=== PATIENT | male | born 1970 | race Caucasian/White ===

== ENCOUNTER 2021-12-20 05:24 | Emergency (ER) | payer OTHER, SELFPAY ==
[2021-12-20 05:26] VITALS: BP 140/95; PULSE 74; RESP 16; TEMP 36.9; O2SAT 98; BMI 29.1
--- NOTE | 2021-12-20 05:33 | EDS_ITS ---
HPI History of Present Illness Chief Complaint: Upper Extremity Injury Informant: patient Occured/Mechanism Mechanism/Context: Yes blunt trauma Onset/Context/Timing Onset: Days (10) Context: Sudden Onset Timing: Intermittent and Waxes and wanes Location: R shoulder Current Severity: Mild Maximum Severity: Moderate Worsened by: tends to get worse at work, when lifting, moving boxes Relieved by: remaining still Associated Symptoms Associated Symptoms: Negative for Parasthesia, Weakness or Loss of Funtion Narrative Narrative: Patient states he injured his right shoulder accidentally around 10 days ago when he was going around a corner and accidentally clipped the corner of the wall with his anterior right shoulder. 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 He gets some crackling and popping with certain movements. [id number]. Has not seen anybody prior to this visit for this problem. PFSH PFSH Medical History no medical history no medical history Home Medications naproxen 500 mg tablet 500 mg PO BID PRN PRN Pain #20 tabs 12/20/21 [Rx Last Taken Unknown] Allergy/AdvReac Type Severity Reaction Status Date / Time No Known Allergies Allergy Verified 08/18/13 08:21 Social History Smoking Status: Current every day smoker tobacco type: cigarettes ROS ROS ED Constitutional Constitutional ED: Denies chills or fever(s) Musculoskeletal Musculoskeletal: Reports extremity pain; Denies neck pain Integumentary Denies Abrasions, rash or wounds Neurologic Neurologic: Denies paresthesias or weakness EXAM Physical Exam Const Vital Signs: 12/20/21 05:26 Temperature 98.4 F Temperature Source Temporal Pulse Rate 74 Respiratory Rate 16 Blood Pressure 140/95 H Blood Pressure Mean 110 Pulse Ox 98 Oxygen Delivery Method Room Air Positive well nourished and well developed General Appearance ED: well developed and NAD Neck full ROM and supple Back/Spine normal ROM and normal to inspection Extremity normal to inspection and full ROM Extremity Narrative: Full range of motion right shoulder including abduction over 90 degrees although this does cause some pain. Internal rotation against resistance reproduces some pain, there is some subacromial and humeral head tenderness. No bony acromial, acromioclavicular, or coracoid process tenderness. Negative Yergason. Negative speed test. Neuro oriented x3, no focal motor deficits and no sensory deficits noted Sensorium / Orientation: alert Psych mental status grossly normal and thought process normal Skin no wounds Rashes: no rashes MDM MDM MDM Narrative Medical decision making narrative: Three-view x-ray series of the right shoulder is obtained and on my interpretat ion it is negative for any acute, but I do see a small piece that may be off the greater trochanter, it does not appear to be acute radiology did note it. He has never had x-rays of his right shoulder here in the past, patient states he had a traumatic dislocation about 20 years ago in [place]. It is certainly possible that he has a chronic calcification versus avulsion versus Hill-Sachs lesion that we are looking. I do not suspect an acute fracture based on the appearance of this fragment. At this point I recommend anti-inflammatories and close outpatient follow-up with orthopedics if the pain persists, this could be a number of soft tissue injuries of the right shoulder, including and not exclusive of contusion, traumatic bursitis, subcoracoid bursitis, rotator cuff injury. Discharge Plan Triage Chief Complaint: Upper Extremity Injury ED Provider: Yunior Baez Dx/Rx/DC Orders Clinical Impression: Injury of right shoulder Instructions: ED Shoulder Contusion Prescriptions: Continued naproxen 500 MG tablet 500 mg PO BID PRN PRN (Reason: Pain) Qty: 20 0RF Primary Care Provider: Care Physician,No Primary Referrals: Mayur Rosas DO [Med Staff - Active Staff] - 10-14 Days if not better Care Physician,No Primary [Primary Care Provider] - Disposition Disposition: Home, Self Care
--- NOTE | 2021-12-20 05:41 | RAD_ITS ---
STUDY: X-RAY - RIGHT SHOULDER REASON FOR EXAM: Male, 51 years old. Pain/injury TECHNIQUE: 4 view(s) of the shoulder. COMPARISON: None. FINDINGS: Normal glenohumeral articulation. Normal acromioclavicular joint. Normal acromion. Normal humeral head and visualized proximal humerus. The soft tissue structures are unremarkable. Bone fragment posterior to the humeral head. Normal visualized pulmonary apex. RAD/Shoulder min 2 Views IMPRESSION: Bone fragment posterior to the humeral head may represent an avulsion fracture. Electronically Signed: Raymond Albert MD at 6:12 EDT ,
[2021-12-20 06:44] VITALS: BP 142/74; PULSE 78; RESP 17; O2SAT 98
== END 2021-12-20 06:45 | disposition home or self-care (01) ==
LOC: ED 05:55
PROVIDERS: Emergency Provider Emergency Medicine; Visit Provider Emergency Medicine
DX: S49.91XA Unspecified injury of right shoulder and upper arm, initial encounter (principal); F17.210 Nicotine dependence, cigarettes, uncomplicated; W22.01XA Walked into wall, initial encounter
CPT/HCPCS: 73030; 99282

== ENCOUNTER → 2022-04-14 | Outpatient (CLI) | payer OTHER, SELFPAY ==
--- NOTE | 2022-04-14 16:08 | CT_ITS ---
EXAM: CT MAXILLOFACIAL SINUSES WITH INTRAVENOUS CONTRAST CLINICAL INDICATION: BASAL CELL CARCINOMA LT SIDE OF NOSE BASAL CELL CARCINOMA TECHNIQUE: Helically acquired images were obtained of the maxillofacial sinuses with intravenous contrast. This CT exam was performed using one or more of the following dose reduction techniques: automated exposure control, adjustment of the mA and/or kV according to patient size, and/or use of iterative reconstruction technique. This report was created using [employer] report generation technology. CONTRAST: IV 50mL Isovue-370 RADIATION DOSE: CTDIvol = 29.38 mGy, DLP = 591.53 mGy-cm COMPARISON: None. FINDINGS: MAXILLARY SINUSES: Clear. Ostiomeatal complexes are normally formed. SPHENOID SINUSES: Clear. FRONTAL SINUSES: Clear. ETHMOID AIR CELLS: Clear. NASAL CAVITY/SEPTUM: Nasal septum is midline. Nasal turbinates are unremarkable. BONES/JOINTS: Anterior cranial fossa is unremarkable. SOFT TISSUES: Along the left side of the nares, there is a soft tissue ulceration. 12 x 5mm enhancing mass is noted along the medial left maxilla extending to the left nares. This is likely related to the patient''s known carcinoma. ORBITS: Unremarkable. DENTAL: Poor dentition. Multiple dental caries. No periodontal osseous erosion. CT/Sinus/Facial Bone WITH Contras IMPRESSION: Along the left side of the nares, there is a soft tissue ulceration. 12 x 5mm enhancing mass is noted along the medial left maxilla extending to the left nares. This is likely related to the patient''s known carcinoma. Electronically Signed: Rogelio Uriostegui MD at 17:46 EST ,
== END | disposition home or self-care (01) ==
LOC: CT 16:06
DX: C44.91 Basal cell carcinoma of skin, unspecified (principal)
CPT/HCPCS: 70487; Q9967

== ENCOUNTER 2022-06-05 05:57 | Day surgery (SDC) | payer OTHER, SELFPAY ==
--- NOTE | 2022-06-04 23:29 | HP.PCM_ITS ---
History and Physical Date of Admission: 06/05/22 HISTORY OF PRESENT ILLNESS 52 year old man presents with an extensive ulcerated lesion left nasal alar rim and lateral nasal sidewall with erosion into underlying cartilage and nasal mucosa with extension to the left supra-medial cheek and left upper lip that enlarged in size over the last several months.? A punch biopsy was done on 02/06/22.? It showed a nodular basal cell carcinoma.? He denies fever.? He denies trauma.? He denies recent infection.? He denies bleeding.? A CT of his sinuses was done on 04/14/22 which showed no underlying bony involvement.? He presents today for further evaluation and treatment. PAST MEDICAL HISTORY Basal cell carcinoma (BCC) of left medial cheek Basal cell carcinoma (BCC) of left side of nose Basal cell carcinoma (BCC) of skin of left upper lip Bone fracture Smoker PAST SURGICAL HISTORY None. ALLERGIES No Known Allergies MEDICATIONS None. FAMILY HISTORY Other - diabetes SOCIAL HISTORY Smoking Status:? Current every day smoker tobacco type: cigarettes alcohol intake:? never substance use type:? does not use REVIEW OF SYSTEMS General - Denies fever, fatigue, and weight loss. Eyes - Denies cataracts and glaucoma. ENT - Denies nasal congestion and sore throat. Endocrine - Denies excessive thirst and urination. Skin - Has an enlarging ulcerated erosive lesion left nasal alar rim and lateral nasal sidewall with erosion into underlying cartilage and nasal mucosa with extension to the left supra-medial cheek and left upper lip.? A punch biopsy from 02/06/22 showed a nodular basal cell carcinoma. Musculoskeletal - Denies joint pain, joint stiffness, weakness of muscles and joints, and arthritis.? Has back pain. Neuro - Denies headaches. Cardiovascular - Denies chest pain, fatigue, and shortness of breath with exertion. Psych - Denies anxiety and depression. Respiratory - Denies chronic cough and shortness of breath.? Patient is a smoker. Gastrointestinal - Denies nausea, vomiting, diarrhea, and constipation. Hematologic - Denies abnormal bruising and bleeding. Genitourinary - Denies hematuria and urinary frequency. PHYSICAL EXAMINATION General - Alert and Oriented. HEENT - PERRL. EOMI.? Throat is clear.? On his left nasal alar rim and lateral nasal sidewall with erosion into underlying cartilage and nasal mucosa with extension to the left supra-medial cheek and left upper lip is a lesion that was punch biopsied on 02/06/22 and it showed a nodular basal cell carcinoma.? The lesion measures 2.5 x 4 cm.? There is full thickness tissue destruction from the cancer into the left nasal cavity. ? No other suspicious lesions noted. Neck - Supple and nontender.? No cervical adenopathy.? No suspicious lesions noted. Lungs - Clear to auscultation. Heart - Regular rate and rhythm. Abdomen - Soft and nondistended. Extremities - FROM. No axillary adenopathy.? Radial pulses are palpable.? No suspicious lesions noted. Neuro - CN II-XII grossly intact. Psych - Normal mood and affect. ASSESSMENT 1.? 4 cm ulcerated erosive nodular basal cell carcinoma left nasal alar rim and lateral nasal sidewall with erosion into underlying cartilage and nasal mucosa with extension to the left supra-medial cheek and left upper lip. 2.? Smoker. PLAN Medical records reviewed. Pathology reviewed. CT reviewed. First we need to establish a diagnosis with clear margins with an excision of this ulcerated basal cell carcinoma that overlaps multiple aesthetic subunits.? It will be a 1 cm margin for excision. Once clear margins are obtained, will begin the complex reconstruction.? For the nose a forehead flap is necessary to provide soft tissue skin coverage.? Because it is a full thickness erosion into the nasal mucosa, will need cartilage grafts for support.? The cartilage grafts will be taken from the ears and the nasal septum.? Will try and see if the mucosal lining can be reconstructed with an ipsilateral mucoperichondrial flap and a contralateral mucoperichondrial flap. ? If that doesn't provide enough lining, then can proceed with delaying a skin graft to the underside of the forehead flap.? The second step would entail an initial delay procedure to the forehead flap because of his history of smoking.? At the time of the delay, can place a skin graft on the undersurface of the forehead flap that would be rotated into the nasal defect in tandem. ? Would wait 6 weeks before rotating the forehead flap and skin graft.? ? During this delay procedure, may also try and close some of the wound defect with a left cheek advancement flap that would stop at the border of the nose to maintain the aesthetic subunits.? The defect on the left upper lip may be skin grafted. The third step would entail the rotation of the forehead flap and placement of cartilage grafts for support.? Would wait 3 weeks before proceeding with division and inset of the forehead flap. The fourth step would be the division and inset of the forehead flap. The initial surgery, excision of the basal cell carcinoma with a margin, would be done under general anesthesia on an outpatient basis. The last surgery which is division and inset of the forehead flap would be done under general anesthesia on an outpatient basis. The in between surgeries would be done under general anesthesia with a surgical observation overnight stay in the hospital. ? Patient was informed of the risks and complications of the procedure including alternatives to surgery.? These were discussed with the patient personally.? Patient voices understanding and wishes to proceed. Some of the risks and complications were included in a form from the [place] [employer]. Potential risks and complications included but not inclusive of bleeding, infection, seroma, hematoma, bruising, swelling, loss of sensation to skin, partial or complete loss of skin flap, wound breakdown, need for wound care, poor scarring, poor aesthetic outcome, intra operative cardiac or neurologic events, DVT, PE, and reaction to anesthesia. Encouraged patient to stop smoking as it may have deleterious effects on wound healing. Assessment & Plan Assessment/Plan (1) Basal cell carcinoma (BCC) of left side of nose: (2) Basal cell carcinoma (BCC) of left medial cheek: (3) Basal cell carcinoma (BCC) of skin of left upper lip: (4) Smoker:
[2022-06-05 06:30] VITALS: BP 127/85; PULSE 86; RESP 18; TEMP 36.7; O2SAT 100; BMI 26.7
[2022-06-05] MEDS: Lactated Ringers 1,000 ML 15 ML IV (06:35)
--- NOTE | 2022-06-05 07:30 | LES_PTH ---
PATIENT: AMADEO COOK SHARI LOC: [facility] [place] U#:[id number] AGE/SX: 52/M ROOM: RE06/05/[address]: Dr. Art Broussard MD : 1970 BED: DIS: 06/05/2022 SPEC #: [id number] RECD: 06/05/22 13:49 STATUS: RAUL REJeni #: [id number] ONEIL: 06/05/22 07:[address]: Art Broussard DEPT: SURGICAL PATHOLOGY RECD BY: Denise Rodriguez ENTERED: 06/08/22 09:49 SP TYPE: Lesion OTHR DR: No Primary Care Phys Tissues: Skin of lip, NOS Procedures: Surgery Specimen Level IV HEADER OPERATION: Excision ulcerated basal cell cancer left nasal alar rim PRE-OP DIAGNOSIS: 4.0 cm ulcerated erosive nodular basal cell carcinoma left nasal alar rim and lateral nasal sidewall with erosion into underlying cartilage and nasal mucosa with extension to the left supramedial cheek and left upper lip TISSUE SUBMITTED: BCC of left nasal sidewall, nasal alar rim, supramedial cheek, upper lip tag 12 o?clock MICROSCOPIC DIAGNOSIS Skin lesion left nasal sidewall, superior cheek, excision: Basal cell carcinoma, superficial nodular, ulcerated and deeply invasive, extending focally to the deep margin of excision. See comment. AM:juan 06/09/2022 COMMENT The basal cell carcinoma in area is deeply invasive involving skeletal muscle and focal perineural invasion. The lesion extends focally to the central deep soft tissue margin of excision. No skeletal muscle is identified in this region. Clinical correlation is suggested. Case has been reviewed in consultation with Dr. Cordero who concurs with the above diagnosis. IDC:SJ MICROSCOPIC DESCRIPTION Slides are reviewed. GROSS DESCRIPTION Received in fixative is one container labeled with the patient's name and designated left nasal sidewall. The specimen consists of an irregular fragment of skin with attached duvall soft tissue measuring 4.5 x 4.5 x 0.8 cm. A suture is present on one edge. The central portion of the tissue is irregular, granular and possibly ulcerated in an area measuring 3.0 x 3.0 cm. The specimen is differentially inked as follows: 12?o'clock - black, 3 o'clock - red, 6 o'clock - blue, 9 o'clock - green and deep surface - yellow. The specimen is radially sectioned and totally submitted in seven cassettes. / AM:juan 06/08/2022 TC:0 CPT: 11127
[2022-06-05] MEDS: Clindamycin 900 MG/50 ML BAG 75 MG IV (07:46)
[2022-06-05] MEDS: Lidocaine 1% /Epi 1:100 (20ml) 20 ML Vial (08:07)
--- NOTE | 2022-06-05 08:57 | OP.PCM_ITS ---
Problems Associated Problem List Diagnoses (1) Open wound of lip: (2) Basal cell carcinoma (BCC) of left side of nose: (3) Basal cell carcinoma (BCC) of left medial cheek: (4) Basal cell carcinoma (BCC) of skin of left upper lip: (5) Open wound of nasal cavity: (6) Open wound of left cheek: (7) Smoker: Report of Operation Date of Procedure: 06/05/22 Pre-Operative Diagnosis: 1. 4 cm ulcerated erosive nodular basal cell carcinoma left nasal alar rim and lateral nasal sidewall with erosion into underlying cartilage and nasal mucosa with extension to the left supra-medial cheek and left upper lip. 2. Smoker. Post-Operative Diagnosis: 1. 3 cm ulcerated erosive nodular basal cell carcinoma left nasal alar rim and lateral nasal sidewall with erosion into underlying cartilage and nasal mucosa. 2. 1.5 cm ulcerated erosive nodular basal cell carcinoma extension left supra- medial cheek. 3. 1 cm ulcerated erosive nodular basal cell carcinoma extension left upper lip . 4. Open surgical basal cell carcinoma wound left nasal alar rim and lateral nasal sidewall with erosion into underlying cartilage and nasal mucosa. 5. Open surgical basal cell carcinoma wound left supra-medial cheek with involvement of underlying muscle. 6. Open surgical basal cell carcinoma wound left upper lip with involvement of underlying muscle. 7. Smoker. Surgery/Procedure Performed:: 1. Excision 3 cm ulcerated erosive nodular basal cell carcinoma left nasal alar rim and lateral nasal sidewall with erosion into underlying cartilage and nasal mucosa with partial rhinectomy. 2. Radical excision 1.5 cm ulcerated erosive nodular basal cell carcinoma extension left supra-medial cheek involving underlying muscle. 3. Radical excision 1 cm ulcerated erosive nodular basal cell carcinoma extension left upper lip involving underlying muscle. Description of Surgical Findings:: 52 year old man presents with an extensive ulcerated lesion left nasal alar rim and lateral nasal sidewall with erosion into underlying cartilage and nasal mucosa with extension to the left supra-medial cheek and left upper lip that enlarged in size over the last several months.? A punch biopsy was done on 02/06/22.? It showed a nodular basal cell carcinoma.? He denies fever.? He denies trauma.? He denies recent infection.? He denies bleeding.? A CT of his sinuses was done on 04/14/22 which showed no underlying bony involvement.? Patient was informed of the risks and complications of the procedure including alternatives to surgery. These were discussed with the patient personally. Patient voices understanding and wishes to proceed. Some of the risks and complications were included in a form from the [employer]. Potential risks and complications included but not inclusive of bleeding, infection, hematoma, bruising, swelling, loss of sensation to skin, wound breakdown, need for wound care, poor scarring, poor aesthetic outcome, intra operative cardiac or neurologic events, DVT, PE, and reaction to anesthesia. Encouraged patient to stop smoking as it may have deleterious effects on wound healing. Size of wound left nasal alar rim and lateral nasal sidewall, left supra-medial cheek, and left upper lip - 6 x 5 x 1 cm. Surgeon: Art Broussard MD knitting machine fixer: None Type of Anesthesia: General Anesthesiologist: Anirudh Reaves MD and Jean Paul Felipe CRNA Specimen's removed: Ulcerated erosive nodular basal cell carcinoma left nasal alar rim and lateral nasal sidewall with erosion into underlying cartilage and nasal mucosa with extension to the left supra-medial cheek and left upper lip to Pathology. Drains: None. Estimated Blood Loss (mL): 100. Description of Procedure: Patient was taken to OR in supine position and was placed under general anesthesia. The face was prepped and draped in the usual fashion. SCD's were placed for DVT prophylaxis. Perioperative antibiotics were given intravenously. Using xylocaine with epinephrine, the ulcerated erosive nodular basal cell carcinoma left nasal alar rim and lateral nasal sidewall with erosion into underlying cartilage and nasal mucosa with extension to the left supra-medial ch pauma and left upper lip was infiltrated. After waiting 5 minutes for the anesthetic to take effect, I made an incision around the ulcerated erosive nodular basal cell carcinoma with a 1 cm margin in all directions. Dissection was carried down into the subcutaneous tissue. When I got close to the ulcerated erosive portion of the basal cell carcinoma, it was adherent to the underlying nasal cartilage and mucosa as well as to the cheek musculature and lip musculature. Muscle was excised with the specimen so the remaining wound was soft without evidence of gross disease. The left side of the columella was also excised with the specimen as well as some caudal septal mucosa exposing the caudal end of the septum. The left upper lip excision besides including some underlying muscle also included tissue in the nasal vestibule. Some bleeding muscle edges of the cheek musculature and lip musculature were cauterized for hemostasis. When the specimen was removed, a suture was placed at 12 oclock position for pathology orientation. The specimen was then sent to Pathology for analysis to rule out carcinoma at the margins. The basal cell carcinoma of the left side of the nose, left supra-medial cheek, and left upper lip was sent to Pathology as one specimen because of their proximity to each other. The wound was irrigated with saline. Hemostasis was obtained with electrocautery. The size of the basal cell carcinoma wound left nasal alar rim and lateral nasal sidewall with erosion into underlying cartilage and nasal mucosa and left supra- medial cheek with involvement of underlying muscle and left upper lip with involvement of underlying muscle is 6 x 5 x 1 cm. With the additional 1 cm margin, the left nasal alar rim and lateral nasal sidewall with erosion into underlying cartilage was a 5 cm excision. The left supra-medial cheek with involvement of underlying muscle was a 3.5 cm excision. The left upper lip with involvement of underlying muscle was a 3 cm excision. The wound was packed with Aquacel Silver and 4x4 gauze and secured to the skin edges with 4-0 Nylon tie over stent suture dressing. Patient tolerated the procedure well and was sent to PACU in satisfactory condition. Patient will be sent home on antibiotics and pain medication. He will keep his head elevated during the initial postoperative period. Patient will followup on Wednesday06/08/22 for a wound check and Silver dressing change and for discussion of the pathology report when it becomes available. Once there are negative margins in the wound, then will proceed with multistage complex n diann reconstruction along with left supra-medial cheek and left upper lip reconstruction. Grafts/Implants Used: None. Procedure Start Time: 08:07 Procedure Stop Time: 08:52 Complications None. Admit VTE Documentation VTE Present on Admission: No VTE Mechan Device Prophylaxis: SCD's VTE Pharm Prophylaxis ordered?: No Addendum Addendum: Surgery Charges CPT - 38473 ICD-10 - C44.311, S01.20xA, F17.200 [id number] C44.319, S01.402A, F17.200 52025 C44.01, S01.501A, F17.200
[2022-06-05 09:01] VITALS: BP 127/85; BP 147/96; PULSE 81; RESP 16; TEMP 36.3; O2SAT 97
[2022-06-05 09:15] VITALS: BP 127/85; BP 145/112; PULSE 78; RESP 16; O2SAT 100
--- NOTE | 2022-06-05 09:24 | PCM.DC ---
Discharge Instructions Diet Discharge Diet: No restrictions and - (encourage nutritional supplementation with protein to help the healing process.) Activity Discharge Activity: May Shower (from the neck down. Keep facial dressing dry.) and - (keep head elevated. no heavy lifting.) May shower in (days): 1 (from the neck down. keep facial dressing dry.) May resume sexual activity in: 10-14 days Ice area for (Minutes): 5 (facial swelling. ) Weight Bearing Status: Weight bearing as tolerated Lifting Restrictions: 10 lbs. Keep extremity elevated above heart level: - (elevate head.) Dressing / Incision Call your doctor if your incision/area has: Continuous Slow Oozing, Sudden Increased Bleeding, Increased Pain/ Swelling, Increased Redness, Foul Smelling Discharge and Swelling at the incision site Call your doctor if you observe: Fever of 101 or Higher, Coldness, Increased Pain, Shortness of breath, Chest pain, Calf discomfort and Uncontrolled pain Change Dressing in: leave in place till F/U (will change Silver nasal dressing on Wednesday06/08/22.) Cleanse incision/area with: Keep Dressing Clean & Dry (may shower from the neck down.) Follow Up Care Please Follow Up With: Art Broussard MD When: wednesday06/08/22. call [phone] for appt. Test Results: Test results from this visit will be discussed in further detail at your follow-up appointment, if applicable. Discharge Plan Admission Primary Reason for Your Visit: radical excision basal cell carcinoma lt medial cheek, upper lip, and nose Attending Provider: Art Broussard Primary Care Provider: Care Physician,Erika Primary Discharge Orders/Prescriptions Prescriptions: New clindamycin HCl 300 mg capsule 300 mg PO TID Qty: 30 0RF L.acidoph,saliva-B.bif-S.therm [Acidophilus Probiotic Blend] 175 mg capsule 1 cap PO DAILY Qty: 20 0RF oxycodone-acetaminophen [Percocet] 5-325 mg tablet 1 tab PO Q6H PRN (Reason: pain (scale score 7-10)) 7 Days Qty: 28 0RF Rx Instructions: 28 tabs (twenty-eight) Referrals / Follow Up: Art Broussard MD [Med Staff - Active Staff] - (followup wednesday06/08/22.) Care Physician,No Primary [Primary Care Provider] - Disposition Disposition (needs filled in before D/C Order can be placed): Home, Self Care
[2022-06-05 09:30] VITALS: BP 127/85; BP 157/99; PULSE 79; RESP 16; TEMP 36.6; O2SAT 97
[2022-06-05 10:29] VITALS: BP 127/85; BP 144/89; PULSE 83; RESP 18; TEMP 36.6; O2SAT 94
== END 2022-06-05 11:06 | disposition home or self-care (01) ==
LOC: SDC 05:58 → AC 06:00
PROVIDERS: Referring Provider Surgery; Visit Provider Surgery
PROC: (CPT 30150; principal; 2022-06-05 07:20)
DX: C44.311 Basal cell carcinoma of skin of nose (principal); C44.01 Basal cell carcinoma of skin of lip; C44.319 Basal cell carcinoma of skin of other parts of face; F17.210 Nicotine dependence, cigarettes, uncomplicated
CPT/HCPCS: 30150; 21016 ×2; 88305; J7120; J2405

== ENCOUNTER 2022-06-25 14:11 | Observation (INO) | payer OTHER, SELFPAY ==
--- NOTE | 2022-06-24 23:37 | PCM.HP.BLA ---
History and Physical Date of Admission: 06/25/22 Date of Admission: 06/05/22 HISTORY OF PRESENT ILLNESS 52 year old man presents with an extensive ulcerated lesion left nasal alar rim and lateral nasal sidewall with erosion into underlying cartilage and nasal mucosa with extension to the left supra-medial cheek and left upper lip that enlarged in size over the last several months.? A punch biopsy was done on 02/06/22.? It showed a nodular basal cell carcinoma.? He denies fever.? He denies trauma.? He denies recent infection.? He denies bleeding.? A CT of his sinuses was done on 04/14/22 which showed no underlying bony involvement.? He presents today for further evaluation and treatment. PAST MEDICAL HISTORY Basal cell carcinoma (BCC) of left medial cheek Basal cell carcinoma (BCC) of left side of nose Basal cell carcinoma (BCC) of skin of left upper lip Bone fracture Smoker PAST SURGICAL HISTORY None. ALLERGIES No Known Allergies MEDICATIONS None. FAMILY HISTORY Other -?diabetes SOCIAL HISTORY Smoking Status:? Current every day smoker tobacco type: cigarettes alcohol intake:? never substance use type:? does not use REVIEW OF SYSTEMS General - Denies fever, fatigue, and weight loss. Eyes - Denies cataracts and glaucoma. ENT - Denies nasal congestion and sore throat. Endocrine - Denies excessive thirst and urination. Skin - Has an enlarging ulcerated erosive lesion left nasal alar rim and lateral nasal sidewall with erosion into underlying cartilage and nasal mucosa with extension to the left supra-medial cheek and left upper lip.? A punch biopsy from 02/06/22 showed a nodular basal cell carcinoma. Musculoskeletal - Denies joint pain, joint stiffness, weakness of muscles and joints, and arthritis.? Has back pain. Neuro - Denies headaches. Cardiovascular - Denies chest pain, fatigue, and shortness of breath with exertion. Psych - Denies anxiety and depression. Respiratory - Denies chronic cough and shortness of breath.? Patient is a smoker. Gastrointestinal - Denies nausea, vomiting, diarrhea, and constipation. Hematologic - Denies abnormal bruising and bleeding. Genitourinary - Denies hematuria and urinary frequency. PHYSICAL EXAMINATION General - Alert and Oriented. HEENT - PERRL. EOMI.? Throat is clear.? On his left nasal alar rim and lateral nasal sidewall with erosion into underlying cartilage and nasal mucosa with extension to the left supra-medial cheek and left upper lip is a lesion that was punch biopsied on 02/06/22 and it showed a nodular basal cell carcinoma.? The lesion measures 2.5 x 4 cm.? There is full thickness tissue destruction from the cancer into the left nasal cavity. ? No other suspicious lesions noted. Neck - Supple and nontender.? No cervical adenopathy.? No suspicious lesions noted. Lungs - Clear to auscultation. Heart - Regular rate and rhythm. Abdomen - Soft and nondistended. Extremities - FROM. No axillary adenopathy.? Radial pulses are palpable.? No suspicious lesions noted. Neuro - CN II-XII grossly intact. Psych - Normal mood and affect. ASSESSMENT 1.? 4 cm ulcerated erosive nodular basal cell carcinoma left nasal alar rim and lateral nasal sidewall with erosion into underlying cartilage and nasal mucosa with extension to the left supra-medial cheek and left upper lip. 2.? Smoker. PLAN Medical records reviewed. Pathology reviewed. CT reviewed. First we need to establish a diagnosis with clear margins with an excision of this ulcerated basal cell carcinoma that overlaps multiple aesthetic subunits.? It will be a 1 cm margin for excision. Once clear margins are obtained, will begin the complex reconstruction.? For the nose a forehead flap is necessary to provide soft tissue skin coverage.? Because it is a full thickness erosion into the nasal mucosa, will need cartilage grafts for support.? The cartilage grafts will be taken from the ears and the nasal septum.? Will try and see if the mucosal lining can be reconstructed with an ipsilateral mucoperichondrial flap and a contralateral mucoperichondrial flap. ? If that doesn't provide enough lining, then can proceed with delaying a skin graft to the underside of the forehead flap.? The second step would entail an initial delay procedure to the forehead flap because of his history of smoking.? At the time of the delay, can place a skin graft on the undersurface of the forehead flap that would be rotated into the nasal defect in tandem. ? Would wait 6 weeks before rotating the forehead flap and skin graft.? ? During this delay procedure, may also try and close some of the wound defect with a left cheek advancement flap that would stop at the border of the nose to maintain the aesthetic subunits.? The defect on the left upper lip may be skin grafted. The third step would entail the rotation of the forehead flap and placement of cartilage grafts for support.? Would wait 3 weeks before proceeding with division and inset of the forehead flap. The fourth step would be the division and inset of the forehead flap. The initial surgery, excision of the basal cell carcinoma with a margin, would be done under general anesthesia on an outpatient basis. The last surgery which is division and inset of the forehead flap would be done under general anesthesia on an outpatient basis. The in between surgeries would be done under general anesthesia with a surgical observation overnight stay in the hospital. ? Patient was informed of the risks and complications of the procedure including alternatives to surgery.? These were discussed with the patient personally.? Patient voices understanding and wishes to proceed. Some of the risks and complications were included in a form from the [place] [employer] [employer]. Potential risks and complications included but not inclusive of bleeding, infection, seroma, hematoma, bruising, swelling, loss of sensation to skin, partial or complete loss of skin flap, wound breakdown, need for wound care, poor scarring, poor aesthetic outcome, intra operative cardiac or neurologic events, DVT, PE, and reaction to anesthesia. Encouraged patient to stop smoking as it may have deleterious effects on wound healing. Assessment & Plan Assessment/Plan (1) Basal cell carcinoma (BCC) of left side of nose: (2) Basal cell carcinoma (BCC) of left medial cheek: (3) Basal cell carcinoma (BCC) of skin of left upper lip: (4) Smoker:
[2022-06-25] VITALS (13 sets, daily range): BP systolic 130–156; BP diastolic 84–96; PULSE 83–97; RESP 16–20; TEMP 36.5–37.3; O2SAT 93–99; BMI 27.2; BMI 28.4
[2022-06-25] MEDS: Lactated Ringers 1,000 ML 15 ML IV (06:48)
--- NOTE | 2022-06-25 07:30 | LES_PTH ---
PATIENT: AMADEO COOK SHARI LOC: [facility]3 U#:[id number] AGE/SX: 52/M ROOM: [facility] RE06/25/[address]: Dr. Art Broussard MD : 1970 BED: 1 DIS: 06/26/2022 SPEC #: [id number] RECD: 06/25/22 13:15 STATUS: RAUL PAIGEJeni #: [id number] ONEIL: 06/25/22 07:[address]: Art Broussard DEPT: SURGICAL PATHOLOGY RECD BY: Denise Rodriguez ENTERED: 06/26/22 07:57 SP TYPE: Lesion OTHR DR: No Primary Care Phys Tissues: A - Skin of nose, NOS B - Skin of face, NOS Procedures: Surgery Specimen Level IV HEADER OPERATION: First stage nasal reconstruction with left paramedian forehead PRE-OP DIAGNOSIS: Basal cell carcinoma of left side of nose, left medial cheek and skin of left upper lip TISSUE SUBMITTED: A ? Left nasal wound, BCC, left superomedial cheek and left upper lip tissue, black suture tag at 12 o?clock for margin, ignore clear suture, used for closure on left superomedial cheek and upper lip tissue, B ? Left superomedial cheek, more medial than specimen A, tag at 12 o?clock MICROSCOPIC DIAGNOSIS A. Left nasal wound, excisional biopsy: Extensive ulceration, acute and chronic inflammation, granulation tissue reaction and foreign body giant cell reaction. Negative for malignancy. B. Left superomedial cheek, excisional biopsy: Ulceration, acute and chronic inflammation, granulation tissue reaction and foreign body giant cell reaction. Negative for malignancy. SJ:juan 06/29/2022 COMMENT Please make reference to previous specimen ([id number]), skin lesion left nasal sidewall, superior cheek, excision with diagnosis of ?basal cell carcinoma, superficial nodular, ulcerated and deeply invasive.? MICROSCOPIC DESCRIPTION Slides are reviewed. GROSS DESCRIPTION A - Received in fixative is one container labeled with the patient's name and designated left nasal wound, BCC, left superomedial cheek and left upper lip tissue, black suture tag at 12 o'clock for margin, ignore clear suture, used for closure on left superomedial cheek and upper lip tissue. The specimen consists of a crescent-shaped piece of duvall-white skin measuring 3.5 x 1.7 cm and up to 0.3 cm in thickness. The skin margin from about 8 to 10 o?clock is absent. An extensive area of ulceration is noted. The specimen is friable in the adjacent area of ulceration where skin is not present. The specimen is serially sectioned. Also present in the container are multiple fragments of soft tissue measuring in aggregate 2.5 x 2.5 x 0.3 cm. The entire specimen is submitted in four cassettes as follows: 1 ? smaller fragments of tissue, 2-4 - crescent-shaped piece of tissue. B - Received in fixative is one container labeled with the patient's name and designated left superomedial cheek, more medial than specimen #1, tag at 12 o'clock. The specimen consists of a triangular piece of duvall-white skin measuring 1.5 x 0.5 x 0.2 cm. A suture is noted at the base of the triangle identifying 12 o?clock. The specimen is inked as follows: 12 o'clock margin with suture representing the base of triangle ? yellow, 6 o'clock tip ? green, 3 o'clock margin ? black and 9 o'clock margin ? blue. The specimen is serially sectioned and submitted entirely in one cassette. / NBA:juan 06/26/2022 TC:2 CPT: 19564 x2
[2022-06-25] MEDS: Clindamycin 900 MG/50 ML BAG 75 MG IV (08:00)
[2022-06-25] MEDS: Lidocaine 1% /Epi 1:100 (20ml) 20 ML Vial (08:26)
[2022-06-25] MEDS: Mupirocin Ointment 22gm Tube 1 APPLIC (12:52)
--- NOTE | 2022-06-25 13:35 | OP.PCM_ITS ---
Problems Associated Problem List Diagnoses (1) Basal cell carcinoma (BCC) of left side of nose: (2) Basal cell carcinoma (BCC) of left medial cheek: (3) Basal cell carcinoma (BCC) of skin of left upper lip: (4) Open wound of nasal cavity: (5) Open wound of left cheek: (6) Open wound of lip: (7) Smoker: Report of Operation Date of Procedure: 06/25/22 Pre-Operative Diagnosis: 1. Basal cell carcinoma left nasal alar rim and lateral nasal sidewall with erosion into underlying cartilage and nasal mucosa. 2. Open surgical basal cell carcinoma wound left nasal alar rim and lateral nasal sidewall with erosion into underlying cartilage and nasal mucosa. 3. Basal cell carcinoma left supra-medial cheek. 4. Open surgical basal cell carcinoma wound left supra-medial cheek. 5. Basal cell carcinoma left upper lip. 6. Open surgical basal cell carcinoma wound left upper lip. 7. Smoker. Post-Operative Diagnosis: Same. Surgery/Procedure Performed:: 1. First stage complex nasal reconstruction basal cell carcinoma wound left nasal alar rim and lateral nasal sidewall with erosion into underlying cartilage and nasal mucosa with left paramedian forehead flap delay. 2. Surgical preparation left supra-medial cheek and left upper lip with excisional debridement basal cell carcinoma wound. 3. Reconstruction left supra-medial cheek basal cell carcinoma wound with cervicofacial rotation advancement skin flap (72 cm2). Description of Surgical Findings:: Patient went to surgery on 06/05/22 where he underwent excision 3 cm ulcerated erosive nodular basal cell carcinoma left nasal alar rim and lateral nasal sidewall with erosion into underlying cartilage and nasal mucosa with partial rhinectomy and radical excision 1.5 cm ulcerated erosive nodular basal cell carcinoma extension left supra-medial cheek involving underlying muscle and radical excision 1 cm ulcerated erosive nodular basal cell carcinoma extension left upper lip involving underlying muscle. Pathology showed basal cell carcinoma, superficial nodular, ulcerated and deeply invasive, extending focally to the deep margin of excision.? The basal cell carcinoma in area is deeply invasive involving skeletal muscle and focal perineural invasion.? The lesion extends focally to the central deep soft tissue margin of excision.? No skeletal muscle is identified in this region. Postoperatively, there has been no problems with healing of this complex wound thus with a combination of Silver dressing changes on the weekend and Saline dressing changes during the week. Since this is a basal cell carcinoma, I don't want to remove any more muscle than I already have.? The muscle was removed from the supra-medial cheek and upper lip areas. ? The focal extension to the deep margin of excision involving skeletal muscle and focal perineural invasion can be addressed with Radiation Therapy.?? Discussed with the patient, that usually no radiation would occur until the reconstruction is completed.? Dr. Gonzales from [facility] saw the patient on 06/23/22.? I talked to Dr. Gonzales later in the day, and we discussed timing of the radiation.? There is a window of opportunity where the benefit of the radiation is maximal in the early postoperative period, up to 8 weeks.? After which time there is no good data to suggest that radiation after that time would provide similar efficacy.? Waiting until the surgeries are all completed before starting radiation therapy could mean radiation therapy wouldn't start until late August to early September.? This time frame would be 3-4 months from the initial excision of the basal cell carcinoma, 06/05/22.? Even after that much delay, there is still a benefit for radiation therapy.? However the reduced benefit may not be enough to prevent recurrence since he is at increased risk for recurrence even with doing radiation therapy earlier and getting maximum benefit from the treatment.? Other options would include doing the radiation therapy after the left supra-medial cheek wound and left upper lip wound are closed with a cervicofacial advancement flap that will be done this week on 06/25/22.? In this scenario, the nasal wound would still be open during the initial radiation treatments.? In anticipation of this, I may make the initial forehead flap delay a little larger to allow debridement of the radiation wound edges at the time of the placement of the forehead flap.? The division and inset of the forehead flap which normally occurs 3 weeks later may be extended to 6 weeks because of the presence of radiation.? Some of the squaxin mucoperichondrial flaps that are normally available to help close lining defects may not be supple enough to close these lining defects and additional flaps would be necessary for this purpose.? Also instead of placing a skin graft on the undersurface of the initial forehead flap delay, a turnover flap may be used instead if radiation treatments are done during the reconstruction.? Dr. Gonzales will talk to his colleagues regarding the best mode of therapy.? At this time, they are leaning more toward waiting until the surgeries are completed before starting radiation therapy.? I told Dr. Gonzales that I can adapt the reconstruction to the presence of radiated tissue to try and give the patient the best chance of radiation success to minimize recurrence.? Also with radiated tissue, once we have determined there is no active basal cell carcinoma present, HBO treatments can be a helpful modality in softening the radiated skin and increasing vascularity to radiated skin to improve healing which can be problematic in a radiated field. Will schedule the first stage in his complex nasal reconstruction with a forehead flap delay (he is a smoker and may need a initial skin graft placed on the undersurface of the forehead flap because I anticipate the need of bringing in lining tissue).? I will close the supra-medial cheek wound with a cervicofacial flap.? A drain will be placed for 7-10 days if it can maintain its suction.? Part of the flap may be able to close the upper lip wound as well. Patient was informed of the risks and complications of the procedure including alternatives to surgery.? These were discussed with the patient personally.? Patient voices understanding and wishes to proceed. Some of the risks and complications were included in a form from the [employer]. Potential risks and complications included but not inclusive of bleeding, infection, seroma, hematoma, bruising, swelling, prolonged need for drains, loss of sensation to skin, partial or complete loss of skin flap, wound breakdown, need for wound care, poor scarring, poor aesthetic outcome, intra operative cardiac or neurologic events, DVT, PE, and reaction to anesthesia. Encouraged patient to stop smoking as it may have deleterious effects on wound healing. I used Eliazar absorbable hemostat, (I used 2 vials, one on the forehead and one on the left supra-medial cheek). Reference Number - [id number]. Lot Number - [id number]. Expiration - November 06, 2026. Surgeon: Art Broussard MD hand welt butter: Julian New RNFA Type of Anesthesia: General Anesthesiologist: Landry Romeo MD and Lacy Freeman CRNA Specimen's removed: 1. Left supra-medial cheek and upper lip basal cell carcinoma wound to Pathology and Microbiology. 2. Left supra supra-medial cheek basal cell carcinoma wound (more medial on the cheek than Specicmen #1) to Pathology and Microbiology. Drains: Basilio. Estimated Blood Loss (mL): 50. Fluids Replaced: 3500 ml (IV Fluids 2200 ml, Urine Output 1300 ml). Description of Procedure: Patient was taken to OR in supine position and was placed under general anesthesia. The face and neck areas were prepped and draped in the usual fashion. SCD's were placed for DVT prophylaxis. Perioperative antibiotics were given intravenously. A wolff catheter was placed. I marked out the area for the supratrochlear artery on the medial aspect of the left forehead in the area of the medial eyebrow. A Doppler probe was used to ovidio out the placement of the artery. The signal was strong. I rotated a piece of gauze using the medial eyebrow as the fulcrum down over the nasal defect. Using foil from a suture packet, I marked out the nasal defect on the foil and rotated it with the gauze to ovidio out the flap on the forehead. The width of the vascular pedicle to include the supratrochlear artery is 1.5 cm. I added extra length to the distal flap for a possible turnover flap for lining if needed. Initially I thought I could use a skin graft on the undersurface of the flap but healing may be questionable because of his history of smoking and the possibility of radiation therapy in between the surgeries. The distal markings on the forehead flap were infiltrated with Xylocaine and epinephrine. Incisions were made on the distal aspect of the flap, and the distal flap was elevated at the level of the muscle. Hemostasis was obtained with electrocautery. I sprayed Eliazar absorbable hemostat into the forehead wound to minimize seroma formation. I then tacked down the distal forehead flap back in place with 5-0 Monocryl interrupted sutures for the deep dermis and subcutaneous tissue. The skin was loosely approximated with 6-0 Prolene simple interrupted sutures. No hematoma noted. No vascular compromise noted on the forehead flap. Next I marked out a cervicofacial flap going from the supra-medial cheek defect horizontally between the eyelid skin and cheek skin and elevated the flap superiorly past the lateral canthal area and extending it down the preauricular area to the ear lobe. I also marked out the flap from the supra-medial cheek defect inferiorly down the melolabial fold and curved around the commissure to the inferior melolabial fold. These markings were infiltrated with Xylocaine and epinephrine. I then excised the left supra-medial cheek and upper lip basal cell carcinoma wound a little deeper because of a positive deep margin involving the muscle. A suture was marked at 12 oclock position for pathology orientation. It was sent to Pathology for analysis to rule out carcinoma at the deep margin. A small sample of tissue was also sent to Microbiology for culture. A positive culture will necessitate antibiotic therapy. The cervicofacial flap was elevated on a subcutaneous pedicle at the level of the underlying facial musculature. Hemostasis was obtained with electrocautery. The flap was rotated and advanced into the left supra-medial cheek defect with minimal tension and minimal distortion. A size 15 Basilio drain was placed through a separate stab incision inferior to the ear lobe and secured to the skin with 3-0 Nylon purse string suture. When I was advancing the flap into the supra-medial cheek defect, I felt there was an additional wedge of wound that extended to the lateral nasal sidewall that needed to be excised as well to allow more definitive demarcation between the lateral nose and the cheek. A suture was marked at 12 oclock position for pathology orientation. It was also sent to Pathology for analysis to rule out carcinoma at the deep margin, and a sample of tissue was also sent to Microbiology for culture. A positive culture will necessitate antibiotic therapy. I sprayed Eliazar absorbable hemostat into the cervico facial flap wound (the rest of the initial Eliazar and followed by a second vial of Eliazar). I then secured the cervicofacial flap to the supra-medial cheek wound at the level of the lateral nasal sidewall with 5-0 Monocryl interrupted sutures. The skin was approximated with 5-0 Prolene simple interrupted sutures and 6-0 Prolene simple interrupted sutures. The size of the wound and the size of the flap needed to close the supra-medial cheek wound was 9 x 8 cm or 72 cm2. No hematoma noted. No vascular compromise noted on the cervicofacial flap. Antibiotic ointment was applied to the suture lines on both the forehead flap and the cervicofacial flap. Silver dressing was applied to the left nasal wound. Gauze was applied to the forehead flap incision and secured with a small compression dory wrap. The cheek suture line was left open for observation. Patient tolerated the procedure well and was sent to PACU in satisfactory condition. He will keep his head elevated during the initial postoperative period and be on a 10 lb lifting restriction. Patient will be sent upstairs for continued postop care and a surgical observation overnight stay in the hospital. Grafts/Implants Used: Eliazar Procedure Start Time: 08:26 Procedure Stop Time: 13:27 Complications None. Admit VTE Documentation VTE Present on Admission: No VTE Mechan Device Prophylaxis: SCD's VTE Pharm Prophylaxis ordered?: Yes Addendum Addendum: Surgery Charges CPT - 68242 ICD-10 - C44.311, S01.20xA, C44.319, S01.402A, C44.01, S01.501A, F17.200 [id number] C44.319, S01.402A, C44.01, S01.501A, C44.311, S01.20xA, F17.200 32057 C44.319, S01.402A, C44.01, S01.501A, C44.311, S01.20xA, F17.200 44366 C44.319, S01.402A, C44.311, S01.20xA, C44.01, S01.501A, F17.200
[2022-06-25] MEDS: Clindamycin 600 MG/50 ML BAG 100 MG IV ×2 (15:58→21:40)
[2022-06-25] MEDS: oxyCODONE 5 MG Tablet 10 MG PO (16:01)
[2022-06-25] MEDS: HYDROmorphone 1 MG/ML Syringe IV (17:54)
[2022-06-26 03:23] VITALS: BP 133/82; PULSE 86; RESP 16; TEMP 36.6; O2SAT 94
[2022-06-26] MEDS: HYDROmorphone 1 MG/ML Syringe IV (04:02)
[2022-06-26] MEDS: Clindamycin 600 MG/50 ML BAG 100 MG IV ×2 (05:14→13:40)
[2022-06-26 06:08] LABS: Hematocrit 42.2 % (40-54); Hemoglobin 14.3 g/dL (13.0-16.5); Mean Corp Hgb Conc 33.9 g/dL (32-36); Mean Corpuscular Hgb 31.8 pg (27.0-32.0); Mean Corpuscular Volume 93.8 fL (80-94); Mean Platelet Vol. 9.1 fl (6.2-12.0); Platelet Count 372 K/mm3 (150-450); RBC Distribution Width SD 41.4 fl (35.1-43.9); White Blood Count 11.8 K/mm3 (4.4-11.0)
[2022-06-26 07:17] VITALS: BP 122/80; PULSE 79; RESP 16; TEMP 36.7; O2SAT 93
[2022-06-26 07:44] LABS: Anion Gap 7 (5-15); BUN 8 mg/dL (7-18); BUN/Creat Ratio 8.7 RATIO (10-20); Calcium,Total 8.9 mg/dL (8.5-10.1); Chloride 104 mmol/L (98-107); Creatinine, Serum 0.92 mg/dL (0.70-1.30); EST Glomerular Filtration Rate 92 mL/min (>60); Est Glom Filt Rate - Afr Amer 111 mL/min (>60); Estimated Creatinine Clearance 101.17 ml/min; Glucose 102 mg/dL (74-106); Potassium 3.8 mmol/L (3.5-5.1); Prealbumin 19.4 mg/dL (20.0-40.0); Sodium Level 138 mmol/L (136-145)
[2022-06-26] MEDS: Juven (unflavored) Packet 1 PACKET PO (08:14)
[2022-06-26] MEDS: Enoxaparin 40 MG/0.4 ML Syringe SC (08:14)
[2022-06-26 09:03] VITALS: O2SAT 91
--- NOTE | 2022-06-26 09:17 | CASEMGMT ---
JULIANO NG Assessment: Face to Face with pt for initial transition planning/care coordination assessment. RN BERENICE introduced self and role at [facility], pt voices understanding and consents to assessment. Pt is A/O x4 and answers all questions appropriately at this time. Pt sitting up in bed in no distress. Care providers, pharmacy, and demographics verified/updated. Admitting Dx: nasal reconstruction left PCP:Pt denies, provided pt with a local healthcare directory pamphlet Specialists:[place], [place] Preferred Pharmacy: [facility] Retail Insurance: [employer] Prescription Benefit: yes LNOK: Adriano Chavarria Jr, son Living Arrangements: Pt lives with son in a single story home with 2 steps to enter. Pt reports he was I in ADL's and working prior to surgery. Pt denies concerns at home. Transportation: Pt drives self and denies concerns with transportation. Pt son is able to transport until pt can drive again. DME/HHC/SNF: Pt denies having any DME, previous HHC or SNF stays. Pt states no concerns with going home at time of dc. Pt states should he need dressing changes, he does not have anyone available to do this as his son works opposite shifts. Made aware when rounds today, we will see what his needs will be post hospitalization. Pt states no further concerns/needs. CM to follow. Advised pt to ask CM if any further question/concerns/needs arise, voices understanding. Pt Goal: Home Plan: Home, follow for wound care
[2022-06-26 10:00] VITALS: BP 128/70; PULSE 78; RESP 17; TEMP 36.7; O2SAT 95
--- NOTE | 2022-06-26 10:42 | WOUNDNOTE ---
wound photo: face/nose
--- NOTE | 2022-06-26 10:42 | WOUNDNOTE ---
wound photo: forehead
[2022-06-26 11:23] VITALS: BP 132/83; PULSE 95; RESP 18; TEMP 37.2; O2SAT 93
[2022-06-26 16:00] VITALS: BP 126/80; PULSE 80; RESP 18; TEMP 36.8; O2SAT 95
--- NOTE | 2022-06-26 16:48 | DCINST_ITS ---
Discharge Instructions Diet Discharge Diet: No restrictions (increase protein intake) Activity Ice area for (Minutes): 5 Lifting Restrictions: 10 lb weight lifting restriction Additional Activity Instructions:: Keep head elevated at all times. Dressing / Incision Call your doctor if your incision/area has: Continuous Slow Oozing, Sudden Increased Bleeding, Increased Pain/ Swelling, Increased Redness, Foul Smelling Discharge and - (Flaps become black) Call your doctor if you observe: Fever of 101 or Higher, Coldness, Increased Pain, Change in Color, Inability to urinate, Inability to have a bowel movement, Shortness of breath, Chest pain, Calf discomfort and Uncontrolled pain Suture Line Care: Avoid Pulling/Pushing Change Dressing in: do not change dressing Cleanse incision/area with: Do not get Incision Wet Drain: Suction Additional Dressing/Incision Instructions:: Measure drainage and document drainage amounts and bring with you to your appointment Wednesday. Follow Up Care Please Follow Up With: Art Broussard MD When: Wednesday06/29/22 at 3:30 pm. Call if you can't make this time [phone] Test Results: Test results from this visit will be discussed in further detail at your follow- up appointment, if applicable. Discharge Plan Admission Admit Date/Time: 06/25/22 14:11 Attending Provider: Art Broussard Primary Care Provider: Care Physician,Erika Primary Discharge Orders/Prescriptions Prescriptions: New clindamycin HCl 300 mg capsule 300 mg PO TID 7 Days Qty: 21 0RF levofloxacin 500 mg tablet 500 mg PO DAILY 7 Days Qty: 7 0RF Continued L.acidoph,saliva-B.bif-S.therm [Acidophilus Probiotic Blend] 175 mg capsule 1 cap PO DAILY Qty: 20 0RF oxycodone-acetaminophen [Percocet] 5-325 mg tablet 1 tab PO Q6H PRN (Reason: pain (scale score 7-10)) 7 Days Qty: 28 0RF Rx Instructions: 28 tabs (twenty-eight) Referrals / Follow Up: Care Physician,No Primary [Primary Care Provider] -
--- NOTE | 2022-06-26 16:50 | PCM.PN.SRG ---
Subjective Subjective Postop #1 Patient is resting comfortably. He is tolerating po analgesia. He is steady on his feet with ambulation. Objective Data Objective Data Vital Signs: Vital Signs Temp Pulse Resp BP Pulse Ox O2 Del Method 98.3 F 80 18 126/80 H 95 Room Air 06/26/22 16:00 06/26/22 16:00 06/26/22 16:00 06/26/22 16:00 06/26/22 16:00 06/26/22 16:00 Oxygen Delivery Method Room Air Weight: 204 lb Body Mass Index (BMI) 28.4 Intake & Output: Intake and Output for Last 24 Hours 06/24/22 06/25/22 06/26/22 23:59 23:59 23:59 Intake Total 2550 / 2550 500 / 500 Output Total 1700 / 1700 1165 / 1165 Balance 850 / 850 -665 / -665 Drainage 65 ml today. Prealbumin was 19.4. Encourage nutritional supplementation with protein to help the healing process. Lab / Micro Data Attestation: I reviewed the patient's lab results. Result Diagrams: 06/26/22 04:30 06/26/22 04:30 Labs: Laboratory Results - last 24 hr 06/26/22 04:30: WBC 11.8 H, RBC 4.50 L, Hgb 14.3, Hct 42.2, MCV 93.8, MCH 31.8, MCHC 33.9, RDW Std Deviation 41.4, RDW Coeff of Garth 12.0, Plt Count 372, MPV 9.1 06/26/22 04:30: Sodium 138, Potassium 3.8, Chloride 104, Carbon Dioxide 27.0, Anion Gap 7, BUN 8, Creatinine 0.92, Estim Creat Clear Calc 101.17, Est GFR (MDRD) Af Amer 111, Est GFR (MDRD) Non-Af 92, BUN/Creatinine Ratio 8.7 L, Glucose 102, Calcium 8.9, Prealbumin 19.4 L Micro: Microbiology 06/25/22 08:57 Wound - Nose Gram Stain - Final 06/25/22 08:57 Wound - Nose Wound Culture - Preliminary Staphylococcus aureus Gram negative gloria Pathology - pending. Physical Exam Narrative General - Alert and Oriented. HEENT - Moderate swelling left periorbital area. Left cheek incision is dry and intact. Mild bruising noted at distal portion of the flap at junction of lateral nose and superior portion of the flap lateral to the left eye in the yarsani area. Flap is soft with no evidence of hematoma. Forehead flap shows mild bruising at the distal portion of the flap. Can feel underlying skull bone. No active oozing noted. Incision is dry and intact. Neck - Supple and nontender. Abdomen - Soft and nondistended. Psych - Normal mood and affect. Assessment & Plan Assessment/Plan (1) Basal cell carcinoma (BCC) of left side of nose: (2) Basal cell carcinoma (BCC) of left medial cheek: (3) Basal cell carcinoma (BCC) of skin of left upper lip: (4) Open wound of nasal cavity: (5) Open wound of left cheek: (6) Open wound of lip: (7) Smoker: PLAN: Plan Incisions are dry and intact. Flaps are soft with no evidence of hematoma. Mild bruising noted at distal end of forehead flap. Will observe. Mild bruising noted at distal end of cheek flap at junction of lateral nose and at superior end of cheek flap lateral to the eye in the yarsani area. Will observe. Patient is tolerating po analgesia. He is steady on his feet with ambulation. Discharge home today. Keep head elevated and maintain 10 lb lifting restriction. Continue Silver dressing changes to the nasal wound 3 times per week. He was treated perioperatively with Clindamycin. Operative culture thus far shows Staphylococcus aureus and Gram negative gloria. Will send him home on Clindamycin and Levaquin. When ID and Sensitivities become available, antibiotic modification may be necessary. He has pain meds at home from his first surgery. Followup office on 06/29/22. Encouraged patient to stop smoking as it may have deleterious effects on wound healing.
== END 2022-06-26 17:37 | disposition home or self-care (01) ==
LOC: SDC 14:45 → MS3 14:45
PROVIDERS: Admitting Provider Surgery; Referring Provider Surgery; Visit Provider Surgery
PROC: (CPT 30420; principal; 2022-06-25 07:15)
DX: C44.311 Basal cell carcinoma of skin of nose (principal); C44.01 Basal cell carcinoma of skin of lip; F17.210 Nicotine dependence, cigarettes, uncomplicated; C44.319 Basal cell carcinoma of skin of other parts of face
CPT/HCPCS: 15620; 15004; 14301; 14302; 00300; 36415; 80048; 84134; 85027; 87070; 87075; 87077; 87102; 87186; 87205; 87206; 88305; 94668; 96365; 96366; 96372; 96375; 96376; 99221; 99252; J7120; G0378; G0463; J2405; Q9968

== ENCOUNTER 2022-07-02 10:00 | Outpatient (RCR) | payer OTHER, SELFPAY ==
[2022-07-01 08:26] VITALS: BP 137/89; PULSE 86; RESP 18; TEMP 36.1
--- NOTE | 2022-07-01 14:23 | PCM.CONHBO ---
Assessment & Plan Assessment/Plan (1) Skin flap necrosis: (2) Basal cell carcinoma (BCC) of left side of nose: (3) Basal cell carcinoma (BCC) of left medial cheek: (4) Basal cell carcinoma (BCC) of skin of left upper lip: (5) Open wound of nasal cavity: (6) Open wound of left cheek: (7) Smoker: (8) Other acute postprocedural pain: (9) History of basal cell carcinoma excision: PLAN: Plan Patient evaluated at the wound center for HBO therapy. With his left supra-medial cheek flap compromise of at least 35% he would benefit from having HBO therapy. There is much concern that the graft will continue to be compromised and will not heal properly. With him needing radiation, the sooner he is healed, the sooner he can continue with the treatments to help his condition. He would need to start with 20 treatments at 2 KALLI for 90 minutes. He has stopped smoking as of 06/25/22. He was smoking 1.5 PPD x 35+ years. The smoking has contributed to the compromise of his left flap. Reinforced with patient that stopping smoking was the best thing he could have done to help himself. The forehead flap has a small area of compromise but it has improved since Dr. Broussard removed some of the sutures to help prevent so much tension on the flap. Continue Silver cell dressings packed into the edges of the flap to help keep the wound separation open to help with the drainage. Will obtain a chest x-ray and EKG. He will follow up at [facility] tomorrow for a dressing change. He was instructed not to get his head wet at this time. Reviewed the instructions of HBO therapy. Follow up at the wound center when HBO therapy is approved. History of Present Illness Date of Service: 07/01/22 Chief Complaint: Compromise of left supra-medial cheek and left upper lip flap and forehead flap delay History of Wound: 52 year old man presents with an extensive ulcerated lesion left nasal alar rim and lateral nasal sidewall with erosion into underlying cartilage and nasal mucosa with extension to the left supra-medial cheek and left upper lip that enlarged in size over the last several months. A punch biopsy was done on 02/06/22. It showed a nodular basal cell carcinoma. He denies fever. He denies trauma. He denies recent infection. He denies bleeding. A CT of his sinuses was done on 04/14/22 which showed no underlying bony involvement. Surgery on 06/05/22 where he underwent excision 3 cm ulcerated erosive nodular basal cell carcinoma left nasal alar rim and lateral nasal sidewall with erosion into underlying cartilage and nasal mucosa with partial rhinectomy and radical excision 1.5 cm ulcerated erosive nodular basal cell carcinoma extension left supra-medial cheek involving underlying muscle and radical excision 1 cm ulcerated erosive nodular basal cell carcinoma extension left upper lip involving underlying muscle. Surgery on 06/25/22 where he underwent 1st stage complex nasal reconstruction basal cell carcinoma wound left nasal alar rim and lateral nasal sidewall with erosion into underlying cartilage and nasal mucosa with left paramedian forehead flap delay and surgical preparation left supra-medial cheek and left upper lip with excisional debridement basal cell carcinoma wound and reconstruction left supra-medial cheek basal cell carcinoma wound with cervicofacial rotation advancement skin flap (72 cm2). He was discharged from the hospital on 06/26/22. When he came into the office on Wednesday06/29/22 there was some compromise of the distal and superior aspect of the cervicofacial rotation advancement flap (about 25%). No firmness or bulging to suggest a hematoma causing some of the compromise. Dr. Broussard had a discussion with the patient preoperatively as well as Wednesday that smoking can have an effect on wound healing as the nicotine constricts the tiny perforators to the skin. Dr. Broussard remove a few more sutures on Wednesday. The purpose of some of the suture removal is to relieve some pressure on the skin that may lead to some improvement of the compromised area. The forehead flap delay shows a thin area distally on the flap that shows some compromise. Pathology from 06/25/22 showed the left supra-medial cheek and upper lip basal cell carcinoma wound (Specimen A) showed extensive ulceration, acute and chronic inflammation, granulation tissue reaction and foreign body giant cell reaction. Negative for malignancy. There was an additional left supra-medial cheek basal cell carcinoma wound (Specimen B - more medial than specimen A) which showed ulceration, acute and chronic inflammation, granulation tissue reaction and foreign body giant cell reaction. Negative for malignancy. Pathology from 06/05/22 showed basal cell carcinoma, superficial nodular, ulcerated and deeply invasive, extending focally to the deep margin of excision. The basal cell carcinoma in area is deeply invasive involving skeletal muscle and focal perineural invasion. The lesion extends focally to the central deep soft tissue margin of excision. No skeletal muscle is identified in this region. Operative culture from 06/25/22 showed Staphylococcus aureus and Pseudomonas aeroginosa. Perioperatively he has been treated with Clindamycin and Levaquin. He stopped the Clindamycin and continues the Levaquin. With the compromise of his left supra-medial flap, he would benefit from HBO therapy. Today he denies fever, chill, nausea or vomiting. His pain is under better control today. Progress of Wound: Today the left facial flap shows approximately 35% compromise. The upper portion is black and starting to get firm. The Basilio drain was removed yesterday and today able to express bloody drainage from the edge of the left supra-medial flap where the sutures were removed on the edge of the flap. His left eye is less swollen today and he is able to see out of it. He has dried drainage on the left nasal wound that was easily removed and the wound underneath is beefy pink. The forehead flap is looking much better, the color is pink, there is no seroma under the flap. There is a thin area of compromise present on the forehead flap. [facility] Medical History Basal cell carcinoma (BCC) of left medial cheek Basal cell carcinoma (BCC) of left side of nose Basal cell carcinoma (BCC) of skin of left upper lip Bone fracture Cancer Injury of back Open wound of left cheek Open wound of lip Open wound of nasal cavity Skin cancer Skin flap necrosis Smoker Wears glasses Home Medications L.acidophil,salivari-Bifido bifidum-Strep thermoph 175 mg capsule (Acidophilus Probiotic Blend) 1 cap PO DAILY #20 caps 06/05/22 [Rx Last Taken Unknown] oxycodone-acetaminophen 5 mg-325 mg tablet (Percocet) 1 tab PO Q6H PRN pain (scale score 7-10) 7 days #28 tabs 06/05/22 [Rx Last Taken Unknown] levofloxacin 500 mg tablet 500 mg PO DAILY 21 days #21 tabs 06/29/22 [Rx Last Taken Unknown] Allergy/AdvReac Type Severity Reaction Status Date / Time No Known Allergies Allergy Verified 06/30/22 15:53 Family History Other Diabetes Surgical History History of basal cell carcinoma excision Hx of eye surgery Hx of surgical procedure Social History Smoking Status: Former smoker alcohol intake: never substance use type: does not use ROS Constitutional Constitutional: Reports fatigue; Denies chills, fever(s) or frequent falls Eyes Eyes: Reports requires corrective lenses and other Details: history of astigmatism surgery on his eye ENT HEENT: Reports as per HPI Cardiovascular Cardiovascular: Reports none; Denies chest pain or dyspnea Respiratory/Chest Respiratory/Chest: Reports none; Denies cough Gastrointestinal Gastrointestinal: Denies diarrhea, nausea or vomiting Musculoskeletal Musculoskeletal: Reports systems reviewed and no addt'l complaints, except as documented Integumentary Integumentary: Reports as per HPI and wounds Neurologic Neurologic: Reports as per HPI Psychiatric Psychiatric: Denies abnormal sleep pattern or anxiety Endocrine Endocrinology: Reports none Physical Exam Physical Exam Const alert, oriented x3 and no apparent distress General Appearance: cooperative Orientation / Consciousness: awake HEENT Negative for dentition normal HEENT Narrative: The left facial flap shows approximately 35% compromise. The upper portion is black and starting to get firm. The Basilio drain was removed yesterday and today able to express bloody drainage from the edge of the left supra-medial flap where the sutures were removed on the edge of the flap. His left eye is less swollen today and he is able to see out of it. He has dried drainage on the left nasal wound that was easily removed and the wound underneath is beefy pink. The forehead flap is looking much better, the color is pink, there is no seroma under the flap. There is a thin area of compromise present on the forehead flap. Eyes Eyes Narrative: Left eye is swollen but he is able to open it and see out of it. Neck full ROM Resp normal respiratory effort and normal air movement Resp Narrative: Lung sounds mildly diminished in the bases bilaterally. After having him cough, his lung sounds did improve. No wheezes, rhonchi or cough. Effort and Inspection: able to speak in complete sentences Cardio regular rate and regular rhythm GI soft to palpation and non-tender Back/Spine normal ROM Extremity full ROM Skin Wound Narrative: The left facial flap shows approximately 35% compromise. The upper portion is black and starting to get firm. The Basilio drain was removed yesterday and today able to express bloody drainage from the edge of the left supra-medial flap where the sutures were removed on the edge of the flap. His left eye is less swollen today and he is able to see out of it. He has dried drainage on the left nasal wound that was easily removed and the wound underneath is beefy pink. The forehead flap is looking much better, the color is pink, there is no seroma under the flap. There is a thin area of compromise present on the forehead flap. Neuro oriented x3 and moves all extremities Psych mental status grossly normal, thought process normal and cooperative Assessment and Debridement muscle flap: Debridement not Completed: No debridement was completed today Nursing Assessment and Debridement Post-Debridement Measurements and Additional Note: Post-Debridement Measurements/Treatment [facility] Nurse 1 - General Ulcer Assessment Start: 07/01/22 08:25 Freq: Status: Active Protocol: MEGAN.LOWGRETCHENT Activity Type Activity Date Activity User E-sign Co-sign Detail Recorded Client Recorded Date Recorded By Document 07/01/22 08:26 [id number] 07/01/22 08:30 07/01/22 08:26 - Today's Visit Information Type of service Initial Visit Arrival Mode Ambulatory Transfer Assistance None Patient Identification Verified (Name & Yes ) Patient Requires Transmission-Based No Precautions Vital Signs Temperature (97.8 F-99.1 F) 97 F L Temperature Source Temporal Pulse Rate (60-100) 86 Pulse Location Monitor Respiratory Rate (12-18) 18 Respiratory rate source Observation Blood Pressure (90/60-120/80) 137/89 H Blood Pressure Mean (mm Hg) 105 Source Monitor Position Sitting Blood Pressure Location Left Arm Pain Scale: 0-10 Numeric Is Patient Pain Free? Yes head -Description Aching -Intensity 3 -Duration (hours) Acute -Pain Aggravating Factors Exercise/ Activity, Debridement -Alleviating Factors/Interventions Medication -Effectiveness of Alleviating Factor/ Minimally Intervention effective Communication Assessment Preferred language Trinid[place] Industrial Security Analyst Required No Able to Read Yes Able to Write Yes Right Hearing Abillity Normal Left Hearing Abillity Normal Visual Assistive Devices Glasses Teaching Assessment Preferences Verbal,Written, Demonstration Barriers to Learning None Readiness To Learn Good Willingness to Engage in Self Management Med Activies Readiness to Engage in Self Management Med Activities Anxiety Level Calm Cooperation Cooperative Perception Coherent Interest in Health Problem Asks Questions Education Importance Acknowledges Need Does Patient Smoke tobacco or other No substances Smoking Status Former smoker Is Patient Diabetic No Functional Assessment Recent Decline in Ability to Perform Denies Any Declines Culture/Quaker/Correctional Food Service Supervisor Cultural/Quaker Needs that may affect No Treatment Plan Would you allow our hospital um specialist to No meet you for the purpose of spiritual/ emotional support? Correctional Food Service Supervisor to contact place of tenriism No Teaching: Wound Center *Wound/Skin Impairment -Person Taught Patient -Teaching Method Discussion -Response to teaching Verbalize understanding - Nurse 1 - General Ulcer Measurement Start: 07/01/22 08:25 Freq: Status: Active Protocol: Activity Type Activity Date Activity User E-sign Co-sign Detail Recorded Client Recorded Date Recorded By Document 07/01/22 08:59 [id number] 07/01/22 09:04 07/01/22 08:59 Wound Center Nurse 1 Lower Limb Edema Present NA - Nurse 2 - General Ulcer CM Notes Start: 07/01/22 08:25 Freq: Status: Active Protocol: Activity Type Activity Date Activity User E-sign Co-sign Detail Recorded Client Recorded Date Recorded By Document 07/01/22 08:59 [id number] 07/01/22 09:04 07/01/22 08:59 Pain Scale: 0-10 Numeric Is Patient Pain Free? No - Nurse 3 - General Ulcer D/C NN Start: 07/01/22 08:25 Freq: Status: Active Protocol: Activity Type Activity Date Activity User E-sign Co-sign Detail Recorded Client Recorded Date Recorded By Document 07/01/22 09:05 [id number] 07/01/22 09:07 07/01/22 09:05 Wound Care Center Nurse 3 muscle flap -Ulcer Cleansing Soap and Water -Foul Odor after Cleansing No -Primary Dressing Applied Silvercel -Primary Dressing Covered/Secured with Dry Gauze, Secured with Tape -Silvercel 1 Pain Scale: 0-10 Numeric Is Patient Pain Free? Yes WC - Visit Discharge Discharge Condition Stable Ambulatory Status Ambulatory Transportation Private Auto Medication Reconcilliation completed & Yes provided to patient/care provider Clinical Summary of Care Provided Yes Charges/Coding Procedures Integumentary [id number]: [id number] Global Visit
--- NOTE | 2022-07-02 10:21 | RAD_ITS ---
INDICATION: HYPERBARIC O2 THERAPY EXAMINATION/TECHNIQUE: X-RAY - XR Chest 2 Views COMPARISON: None. FINDINGS: LINES/DEVICES: None. LUNGS: Hyperinflated. No consolidation, edema or effusion. No pneumothorax. MEDIASTINUM AND CARDIOVASCULAR STRUCTURES: Cardiac silhouette not enlarged. Central airways and mediastinal contour are unremarkable. RAD/Chest PA and Lateral IMPRESSION: Emphysema. No radiographic evidence of acute cardiopulmonary disease. Electronically Signed: Raymond Albert MD at 17:59 EDT ,
== END 2022-07-10 23:59 | disposition home or self-care (01) ==
LOC: PSN 10:00
PROVIDERS: Referring Provider Nurse Practitioner Family; Visit Provider Nurse Practitioner Family
DX: C44.01 Basal cell carcinoma of skin of lip (principal); C44.311 Basal cell carcinoma of skin of nose; C44.319 Basal cell carcinoma of skin of other parts of face; G89.18 Other acute postprocedural pain; Z87.891 Personal history of nicotine dependence
CPT/HCPCS: 71046; 93005; 99214; G0463

== ENCOUNTER → 2022-07-10 | Outpatient (CLI) | payer OTHER, SELFPAY ==
--- NOTE | 2022-07-10 13:39 | ECHOD_ITS ---
Reason For Study: Abnormal EKG Procedure This was a 2D Doppler, Color Flow transthoracic echocardiogram. The study was technically difficult. Exam performed in department. Left Ventricle Normal LV size. Mild concentric left ventricular hypertrophy. The left ventricular ejection fraction is 60 %. Normal diastololic function. Right Ventricle Normal right ventricle. Atria The left and right atria are normal. Mitral Valve The mitral valve is structurally normal. No prolapse or stenosis seen. Tricuspid Valve Trivial tricuspid valve insufficiency. Normal pulmonary artery pressure. Aortic Valve Normal aortic valve. Pulmonic Valve The pulmonic valve is not well visualized. Great Vessels Mildly dilated aortic root. Pericardium/Pleural No pericardial effusion. MMode/2D Measurements & Calculations LVIDd: 4.3 cm IVSd: 1.4 cm Ao root diam: 3.4 cm LVIDs: 3.0 cm LVPWd: 1.2 cm LA dimension: 3.1 cm FS: 29.3 % LAV(MOD-bp): 28.2 ml LA A4 area: 11.3 cm2 RA A4 area: 10.2 cm2 LAV(MOD-bp) Indexed: 13.6 ml/m2 LAV(MOD-sp2): 33.0 ml LAV(MOD-sp4): 19.4 ml Time Measurements MV dec time: 0.21 sec Doppler Measurements & Calculations MV E max zeus: 54.9 cm/sec Lat Peak E' Zeus: 7.0 cm/sec Med Peak E' Zeus: 5.5 cm/sec MV A max zeus: 75.6 cm/sec E/E' lat: 7.8 E/E' med: 10.0 MV E/A: 0.73 MV V2 max: 72.4 cm/sec Ao V2 max: 112.0 cm/sec LV V1 max: 95.0 cm/sec MV max P.1 mmHg Ao max P.0 mmHg LV V1 max P.6 mmHg MV V2 mean: 45.6 cm/sec Ao V2 mean: 80.2 cm/sec MV mean P.96 mmHg Ao mean P.0 mmHg MV V2 VTI: 12.0 cm Ao V2 VTI: 18.2 cm PA V2 max: 85.4 cm/sec TR max zeus: 203.8 cm/sec TR max P.6 mmHg ECHO/Echo Complete Interpretation Summary Mild concentric left ventricular hypertrophy. The left ventricular ejection fraction is 60 %. Mildly dilated aortic root. Ordering Physician: Mo Dailey Performed By: Sanjay Christine RCS
== END | disposition home or self-care (01) ==
LOC: CVS 13:38
PROVIDERS: Visit Provider Internal Medicine Cardiovascular Disease
DX: R94.31 Abnormal electrocardiogram [ECG] [EKG] (principal)
CPT/HCPCS: 93306

== ENCOUNTER → 2022-07-14 | Outpatient (CLI) | payer OTHER, SELFPAY ==
--- NOTE | 2022-07-15 09:59 | PFT ---
INTRODUCTION: The patient is a 52-year-old male that presents for pulmonary function studies secondary to a diagnosis of COPD. Respiratory therapy reported that the patient was not able to complete testing due to missing a left nostril and inability to use nose clips. Lung volumes were subsequently obtained per request by Dr. Cevallos. INTERPRETATION: Body plethysmography demonstrated an elevated RV to 159% of predicted, which could be suggestive of underlying air trapping. IMPRESSION: Elevated RV suggestive of underlying air trapping. Spirometry and diffusing capacity were not obtained.
== END | disposition home or self-care (01) ==
LOC: PSN 09:51
PROVIDERS: Referring Provider Internal Medicine; Visit Provider Internal Medicine
DX: J44.9 Chronic obstructive pulmonary disease, unspecified (principal); F17.200 Nicotine dependence, unspecified, uncomplicated
CPT/HCPCS: 94726

== ENCOUNTER → 2022-07-31 | Outpatient (CLI) | payer OTHER, SELFPAY | END | disposition home or self-care (01) | LOC: LABSPEC 14:44 | PROVIDERS: Referring Provider Nurse Practitioner Family; Visit Provider Nurse Practitioner Family | DX: S01.402A Unspecified open wound of left cheek and temporomandibular area, initial encounter (principal); I96 Gangrene, not elsewhere classified; S01.20XA Unspecified open wound of nose, initial encounter; S01.501A Unspecified open wound of lip, initial encounter; C44.01 Basal cell carcinoma of skin of lip; C44.319 Basal cell carcinoma of skin of other parts of face; C44.311 Basal cell carcinoma of skin of nose; F17.200 Nicotine dependence, unspecified, uncomplicated; Z98.890 Other specified postprocedural states; Z85.828 Personal history of other malignant neoplasm of skin; T86.828 Other complications of skin graft (allograft) (autograft) | CPT/HCPCS: 87070; 87075; 87077; 87186; 87205 ==

== ENCOUNTER 2022-08-07 15:37 | Observation (INO) | payer OTHER, SELFPAY ==
--- NOTE | 2022-08-06 20:55 | PCM.HP.BLA ---
History and Physical Date of Admission: 08/07/22 HISTORY OF PRESENT ILLNESS 52 year old man presents with an extensive ulcerated lesion left nasal alar rim and lateral nasal sidewall with erosion into underlying cartilage and nasal mucosa with extension to the left supra-medial cheek and left upper lip that enlarged in size over the last several months.? A punch biopsy was done on 02/06/22.? It showed a nodular basal cell carcinoma.? He denies fever.? He denies trauma.? He denies recent infection.? He denies bleeding.? A CT of his sinuses was done on 04/14/22 which showed no underlying bony involvement.? He went to surgery on 06/05/22 where he underwent excision 3 cm ulcerated erosive nodular basal cell carcinoma left nasal alar rim and lateral nasal sidewall with erosion into underlying cartilage and nasal mucosa with partial rhinectomy and radical excision 1.5 cm ulcerated erosive nodular basal cell carcinoma extension left supra-medial cheek involving underlying muscle and radical excision 1 cm ulcerated erosive nodular basal cell carcinoma extension left upper lip involving underlying muscle. Pathology showed basal cell carcinoma, superficial nodular, ulcerated and deeply invasive, extending focally to the deep margin of excision.? The basal cell carcinoma in area is deeply invasive involving skeletal muscle and focal perineural invasion.? The lesion extends focally to the central deep soft tissue margin of excision.? No skeletal muscle is identified in this region. There were no issues with wound care with Silver dressings after surgery. He went back to the operating room on 06/25/22 where he underwent first stage complex nasal reconstruction basal cell carcinoma wound left nasal alar rim and lateral nasal sidewall with erosion into underlying cartilage and nasal mucosa with left paramedian forehead flap delay and surgical preparation left supra-medial cheek and left upper lip with excisional debridement basal cell carcinoma wound and reconstruction left supra-medial cheek basal cell carcinoma wound with cervicofacial rotation advancement skin flap (72 cm2). Pathology of the left supra-medial cheek and left upper lip showed extensive ulceration, acute and chronic inflammation, granulation tissue reaction and foreign body giant cell reaction. Negative for malignancy. It was the cheek and the lip where there was invasion of basal cell carcinoma into the muscle on the initial excision on 06/05/22. There was an additional Pathology specimen of the left supra-medial cheek located more medially than the first specimen, and it showed ulceration, acute and chronic inflammation, granulation tissue reaction and foreign body giant cell reaction. Negative for malignancy. Postoperatively he developed some compromise to the cervicofacial rotation advancement flap distally (about 40%) with the development of dry skin eschar. Some of the eschar was sharply debrided at some of his postoperative visits to help with drainage and allow better wound healing with Silver placement on the open wounds. The dry eschar acts as a biologic dressing with less exposure of open wounds which generally means less pain during the healing process. Also by leaving a portion of the remaining flap attached to the dry eschar which in turn is attached to the skin edge superiorly, it maintains some stretch on the remaining flap to minimize some retraction of the remaining flap inferiorly thus widening the wound. He also developed a small area of dry eschar at the distal portion of the forehead flap. Patient attempted to stop smoking after the initial surgery and was successful for a couple of weeks but has restarted again but not as much, usually no more than half a pack a day. After the creation of the forehead flap delay, we waited 6 weeks to maximize vascularity to the flap when it is rotated onto the nose which is what we are doing today. When I created the forehead flap for delay, I made the flap a little larger in case we needed a turnover flap for nasal mucosal lining. Besides rotation of the forehead flap, we will need cartilage grafts for support, usually from the septum and from the ear and, if necessary, the rib. For the nasal mucosal lining, possibilities include a bipedicle mucosal advancement flap, a contralateral mucoperichondrial advancement flap, or an ipsilateral mucoperichondrial rotation flap. Will also debride the rest of the eschar on the compromised flap left cheek. At the time of the surgery on 06/25/22, operative wound cultures were obtained. They were positive for Staphylococcus aureus and Pseudomonas aeroginosa. He was treated with Levaquin. Last week on 07/31/22, in preparation for upcoming surgery, the left cheek wound showed some mild swelling and some redness and was cultured. It was positive for Staphylococcus epidermidis. The Levaquin was intermediate in its sensitivity, so we increased the Levaquin dose to 750 mg per day. The left cheek wound and the left upper lip wound will be skin grafted at the next surgery which is division and inset of the forehead flap. Timing for the next surgery is another 6 weeks. Patient was not interested in readvancement of the cervical facial flap because of the concern that there would be additional flap compromise since he started smoking again. PAST MEDICAL HISTORY Basal cell carcinoma (BCC) of left medial cheek Basal cell carcinoma (BCC) of left side of nose Basal cell carcinoma (BCC) of skin of left upper lip Bone fracture Smoker open surgical basal cell carcinoma wound left upper lip with involvement of underlying muscle open surgical basal cell carcinoma wound left supra-medial cheek with involvement of underlying muscle open surgical basal cell carcinoma wound left nasal alar rim and left lateral nasal sidewall with erosion into the cartilage and nasal mucosa Compromised flap left cheek PAST SURGICAL HISTORY Excision 3 cm ulcerated erosive nodular basal cell carcinoma left nasal alar rim and lateral nasal sidewall with erosion into underlying cartilage and nasal mucosa with partial rhinectomy and radical excision 1.5 cm ulcerated erosive nodular basal cell carcinoma extension left supra-medial cheek involving underlying muscle and radical excision 1 cm ulcerated erosive nodular basal cell carcinoma extension left upper lip involving underlying muscle - 06/05/22 First stage complex nasal reconstruction basal cell carcinoma wound left nasal alar rim and lateral nasal sidewall with erosion into underlying cartilage and nasal mucosa with left paramedian forehead flap delay and surgical preparation left supra-medial cheek and left upper lip with excisional debridement basal cell carcinoma wound and reconstruction left supra-medial cheek basal cell carcinoma wound with cervicofacial rotation advancement skin flap (72 cm2) - 06/25/22 ALLERGIES No Known Allergies MEDICATIONS Levaquin FAMILY HISTORY Other -?diabetes SOCIAL HISTORY Smoking Status:? Current every day smoker tobacco type: cigarettes alcohol intake:? never substance use type:? does not use REVIEW OF SYSTEMS General - Denies fever, fatigue, and weight loss. Eyes - Denies cataracts and glaucoma. ENT - Denies nasal congestion and sore throat. Endocrine - Denies excessive thirst and urination. Skin - Has an open basal cell carcinoma wound involving left upper lip with involvement of underlying muscle, left supra-medial cheek with involvement of underlying muscle, left nasal alar rim and left lateral nasal sidewall with erosion into the cartilage and nasal mucosa Musculoskeletal - Denies joint pain, joint stiffness, weakness of muscles and joints, and arthritis.? Has back pain. Neuro - Denies headaches. Cardiovascular - Denies chest pain, fatigue, and shortness of breath with exertion. Psych - Denies anxiety and depression. Respiratory - Denies chronic cough and shortness of breath.? Patient is a smoker. Gastrointestinal - Denies nausea, vomiting, diarrhea, and constipation. Hematologic - Denies abnormal bruising and bleeding. Genitourinary - Denies hematuria and urinary frequency. PHYSICAL EXAMINATION General - Alert and Oriented. HEENT - PERRL. EOMI.? Throat is clear.? On his left nasal alar rim and lateral nasal sidewall is a complex basal cell carcinoma wound defect. Missing about 50% nasal mucosal lining. Lacking lower lateral cartilage on the left and upper lateral cartilage on the left. On the left upper lip, there is a basal cell carcinoma wound defect which extends into underlying muscle and up to the nasal vestibule. On the left supra-medial cheek there is a basal cell carcinoma wound defect which extends into underlying muscle. There is some residual dry eschar from compromise to a left cervico-facial rotation advancement flap. Some of the dry eschar was sharply debrided in the office. There are open cheek wounds that show good granulation tissue and healing at the present time. On the left forehead is a healing forehead flap delay. There is a small area of dry eschar at the distal portion of the flap. That will be debrided when the forehead flap is rotated down into the left nasal defect. Neck - Supple and nontender.? No cervical adenopathy.? No suspicious lesions noted. Lungs - Clear to auscultation. Heart - Regular rate and rhythm. Abdomen - Soft and nondistended. Extremities - FROM. No axillary adenopathy.? Radial pulses are palpable.? No suspicious lesions noted. Neuro - CN II-XII grossly intact. Psych - Normal mood and affect. ASSESSMENT 1. Basal cell carcinoma (BCC) of left supra-medial cheek with involvement of underlying muscle. 2. Basal cell carcinoma (BCC) of left nasal alar rim and left lateral nasal sidewall with erosion into the cartilage and nasal mucosa. 3. Basal cell carcinoma (BCC) of skin of left upper lip with involvement of underlying muscle. 4. Open surgical basal cell carcinoma wound left upper lip with involvement of underlying muscle. 5. Open surgical basal cell carcinoma wound left supra-medial cheek with involvement of underlying muscle. 6. Open surgical basal cell carcinoma wound left nasal alar rim and left lateral nasal sidewall with erosion into the cartilage and nasal mucosa. 7. Compromised flap left cheek. 8. Smoker. PLAN We are proceeding with the next stage in the complex nasal reconstruction process which is rotation of the left paramedian forehead flap into the complex left nasal defect. I made the flap a little larger in case we needed a turnover flap for nasal mucosal lining. Besides rotation of the forehead flap, we will need cartilage grafts for support, usually from the septum and from the ear and, if necessary, the rib. For the nasal mucosal lining, possibilities include a bipedicle mucosal advancement flap, a contralateral mucoperichondrial advancement flap, or an ipsilateral mucoperichondrial rotation flap. Will also debride the rest of the eschar on the compromised flap left cheek. Will skin graft the left cheek and left upper lip basal cell carcinoma wound defect at the next stage of the complex nasal reconstruction process which is division and inset of the forehead flap which would be done in 6 weeks. He is not interested in readvancement of the cervicofacial flap because of his concern that additional compromised flap will occur since he started smoking again. Surgery will be done under general anesthesia with a surgical observation overnight stay in the hospital. ? Patient was informed of the risks and complications of the procedure including alternatives to surgery.? These were discussed with the patient personally.? Patient voices understanding and wishes to proceed. Some of the risks and complications were included in a form from the [employer]. Potential risks and complications included but not inclusive of bleeding, infection, seroma, hematoma, bruising, swelling, loss of sensation to skin, partial or complete loss of skin flap, wound breakdown, need for wound care, poor scarring, poor aesthetic outcome, intra operative cardiac or neurologic events, DVT, PE, and reaction to anesthesia. Encouraged patient to stop smoking as it may have deleterious effects on wound healing. A wound culture was done on 07/31/22 because of redness and swelling of the left cheek wound. It was positive for Staphylococcus epidermidis. Levaquin is intermediate in its sensitivity so I increased the dose to 750 mg daily which he will continue through this next surgery. We obtained approval for HBO treatments for compromised flap. He is awaiting cardiac and pulmonary clearance before starting. There was residual basal cell carcinoma in the muscle (left supra-medial cheek wound and left upper lip wound). Radiation Oncology was involved and it was decided to wait until the surgeries are completed and reassess. It was felt that the benefit of the radiation would only occur if it were done during the surgical process. And by radiating the area, it would make continuing the reconstruction process problematic as evidenced by the compromised flap probably secondary to his history of smoking since the nicotine has a vasoconstrictive effect on the perforators to the skin. It was decided that the benefit of minimizing recurrence did not outweigh the side effects of the radiation. It would most likely commit the patient to further reconstruction using microvascular free tissue transfer that would be done at a tertiary center. Especially since it was a basal cell carcinoma and the second surgery showed no further evidence of malignancy. Assessment & Plan Assessment/Plan (1) Basal cell carcinoma (BCC) of left medial cheek: (2) Basal cell carcinoma (BCC) of left side of nose: (3) Basal cell carcinoma (BCC) of skin of left upper lip: (4) Open wound of nasal cavity: (5) Open wound of left cheek: (6) Open wound of lip: (7) Skin flap necrosis: (8) Smoker:
[2022-08-07] VITALS (14 sets, daily range): BP systolic 111–153; BP diastolic 81–96; PULSE 89–115; RESP 12–20; TEMP 36.2–37.2; O2SAT 93–98; BMI 27.6
--- NOTE | 2022-08-07 | LES_PTH ---
PATIENT: AMADEO COOK SHARI LOC: [facility] U#:[id number] AGE/SX: 52/M ROOM: [facility] RE08/07/[address]: Dr. Art Broussard MD : 1970 BED: 1 DIS: 08/08/2022 SPEC #: [id number] RECD: 08/07/22 14:59 STATUS: RAUL CROUCH #: [id number] ONEIL: 08/07/22 00:[address]: Art Broussard DEPT: SURGICAL PATHOLOGY RECD BY: Km Bray ENTERED: 08/10/22 09:38 SP TYPE: Lesion OTHR DR: No Primary Care Phys Tissues: Skin of face, NOS Procedures: Surgery Specimen Level IV HEADER OPERATION: Second-stage complex nasal reconstruction with debridement PRE-OP DIAGNOSIS: Basal cell carcinoma of left supramedial cheek, left nasal alar rim and left upper lip TISSUE SUBMITTED: Left cheek and nose basal cell carcinoma and left cheek scar MICROSCOPIC DIAGNOSIS Skin lesion of left cheek, excisional biopsy: Ulceration with associated acute and chronic inflammation, granulation and eschar formation. Detached squamous epithelial cells with focal atypia. See comment. AM:juan 08/11/2022 COMMENT There is no evidence of basal cell carcinoma. Reference is made to the patient's previous left nasal sidewall skin lesion biopsy from 06/09/22 ([id number]) in which basal cell carcinoma extending to the margin of excision was identified. Case has been reviewed in consultation with Dr. Cordero who concurs with the above diagnosis. IDC:SJ MICROSCOPIC DESCRIPTION Slides are reviewed. GROSS DESCRIPTION Received in fixative is one container labeled with the patient's name and designated left cheek and nose basal cell carcinoma and left cheek scar. The specimen consists of a brownish-black piece of indurated tissue measuring 6..2 x 3.0 x 0.3 cm. Also present in the container are multiple fragments of hemorrhagic soft tissue measuring in aggregate 5.0 x 3.0 x 0.3 cm. The entire specimen is submitted in six cassettes. Cassettes 1 & 2 contain the smaller fragments of hemorrhagic tissue and cassettes 3-6 contain the largest piece of tissue. / NBA:juan 08/10/2022 TC:? CPT: 38859
[2022-08-07] MEDS: Lactated Ringers 1,000 ML 15 ML IV ×2 (06:30→15:22)
[2022-08-07] MEDS: levoFLOXacin IV 500 MG/100 ML BAG 100 MG IV (07:40)
[2022-08-07] MEDS: Oxymetazoline 0.05% 1 SPRAY SPRAY.BTL 15 SPRAY (08:22)
[2022-08-07] MEDS: Lidocaine 1% /Epi 1:100 (20ml) 20 ML Vial (08:22)
[2022-08-07] MEDS: Mupirocin Ointment 22gm Tube 1 APPLIC (14:14)
--- NOTE | 2022-08-07 15:06 | OP.PCM_ITS ---
Problems Associated Problem List Diagnoses (1) Basal cell carcinoma (BCC) of left side of nose: (2) Basal cell carcinoma (BCC) of left medial cheek: (3) Basal cell carcinoma (BCC) of skin of left upper lip: (4) Open wound of nasal cavity: (5) Open wound of left cheek: (6) Open wound of lip: (7) Skin flap necrosis: (8) Smoker: Report of Operation Date of Procedure: 08/07/22 Pre-Operative Diagnosis: 1. Basal cell carcinoma (BCC) of left supra-medial cheek with involvement of underlying muscle. 2. Basal cell carcinoma (BCC) of left nasal alar rim and left lateral nasal sidewall with erosion into the cartilage and nasal mucosa. 3. Basal cell carcinoma (BCC) of skin of left upper lip with involvement of underlying muscle. 4. Open surgical basal cell carcinoma wound left upper lip with involvement of underlying muscle. 5. Open surgical basal cell carcinoma wound left supra-medial cheek with involvement of underlying muscle. 6. Open surgical basal cell carcinoma wound left nasal alar rim and left lateral nasal sidewall with erosion into the cartilage and nasal mucosa. 7. Compromised flap left cheek. 8. Smoker. Post-Operative Diagnosis: Same. Surgery/Procedure Performed:: 1. 2nd stage complex nasal reconstruction with surgical preparation left nasal alar rim and lateral nasal sidewall with extension into underlying cartilage and nasal mucosa and left supra-medial cheek and left upper lip with excisional debridement basal cell carcinoma wound. 2. 2nd stage complex nasal reconstruction with left paramedian forehead flap for skin coverage and turnover flap for nasal lining, and contralateral dorsal septal mucoperichondrial hinge flap and ipsilateral bipedicled mucosal advancement flap for nasal lining, and cartilage grafting from nasal septum for support. 3. 5 cm complex repair of left forehead flap donor wound. Description of Surgical Findings:: 52 year old man presents with an extensive ulcerated lesion left nasal alar rim and lateral nasal sidewall with erosion into underlying cartilage and nasal mucosa with extension to the left supra-medial cheek and left upper lip that enlarged in size over the last several months.? A punch biopsy was done on 02/06/22.? It showed a nodular basal cell carcinoma.? He denies fever.? He denies trauma.? He denies recent infection.? He denies bleeding.? A CT of his sinuses was done on 04/14/22 which showed no underlying bony involvement.? He went to surgery on 06/05/22 where he underwent excision 3 cm ulcerated erosive nodular basal cell carcinoma left nasal alar rim and lateral nasal sidewall with erosion into underlying cartilage and nasal mucosa with partial rhinectomy and radical excision 1.5 cm ulcerated erosive nodular basal cell carcinoma extension left supra-medial cheek involving underlying muscle and radical excision 1 cm ulcerated erosive nodular basal cell carcinoma extension left upper lip involving underlying muscle. Pathology showed basal cell carcinoma, superficial nodular, ulcerated and deeply invasive, extending focally to the deep margin of excision.? The basal cell carcinoma in area is deeply invasive involving skeletal muscle and focal perineural invasion.? The lesion extends focally to the central deep soft tissue margin of excision.? No skeletal muscle is identified in this region.? There were no issues with wound care with Silver dressings after surgery.? He went back to the operating room on 06/25/22 where he underwent first stage complex nasal reconstruction basal cell carcinoma wound left nasal alar rim and lateral nasal sidewall with erosion into underlying cartilage and nasal mucosa with left paramedian forehead flap delay and surgical preparation left supra-medial cheek and left upper lip with excisional debridement basal cell carcinoma wound and reconstruction left supra-medial cheek basal cell carcinoma wound with cervicofacial rotation advancement skin flap (72 cm2). ? Pathology of the left supra-medial cheek and left upper lip showed extensive ulceration, acute and chronic inflammation, granulation tissue reaction and foreign body giant cell reaction.? Negative for malignancy.? It was the cheek and the lip where there was invasion of basal cell carcinoma into the muscle on the initial excision on 06/05/22.? There was an additional Pathology specimen of the left supra-medial cheek located more medially than the first specimen, and it showed ulceration, acute and chronic inflammation, granulation tissue reaction and foreign body giant cell reaction.? Negative for malignancy. Postoperatively he developed some compromise to the cervicofacial rotation advancement flap distally (about 40%) with the development of? dry skin eschar.? Some of the eschar was sharply debrided at some of his postoperative visits to help with drainage and allow better wound healing with Silver placement on the open wounds.? The dry eschar acts as a biologic dressing with less exposure of open wounds which generally means less pain during the healing process.? Also by leaving a portion of the remaining flap attached to the dry eschar which in turn is attached to the skin edge superiorly, it maintains some stretch on the remaining flap to minimize some retraction of the remaining flap inferiorly thus widening the wound.? He also developed a small area of dry eschar at the distal portion of the forehead flap.? Patient attempted to stop smoking after the initial surgery and was successful for a couple of weeks but has restarted again but not as much, usually no more than half a pack a day.? After the creation of the forehead flap delay, we waited 6 weeks to maximize vascularity to the flap when it is rotated onto the nose which is what we are doing today.? When I created the forehead flap for delay, I made the flap a little larger in case we needed a turnover flap for nasal mucosal lining.? Besides rotation of the forehead flap, we will need cartilage grafts for support, usually from the septum and from the ear and, if necessary, the rib.? For the nasal mucosal lining, possibilities include a bipedicle mucosal advancement flap, a contralateral mucoperichondrial advancement flap, or an ipsilateral mucoperichondrial rotation flap.? Will also debride the rest of the eschar on the compromised flap left cheek. At the time of the surgery on 06/25/22, operative wound cultures were obtained.? They were positive for Staphylococcus aureus and Pseudomonas aeroginosa.? He was treated with Levaquin. ? Last week on 07/31/22, in preparation for upcoming surgery, the left cheek wound showed some mild swelling and some redness and was cultured.? It was positive for Staphylococcus epidermidis.? The Levaquin was intermediate in its sensitivity, so we increased the Levaquin dose to 750 mg per day. The left cheek wound and the left upper lip wound will be skin grafted at the next surgery which is division and inset of the forehead flap.? Timing for the next surgery is another 6 weeks.? Patient was not interested in readvancement of the cervical facial flap because of the concern that there would be additional flap compromise since he started smoking again. Patient was informed of the risks and complications of the procedure including alternatives to surgery. These were discussed with the patient personally. Patient voices understanding and wishes to proceed. Some of the risks and complications were included in a form from the [employer]. Potential risks and complications included but not inclusive of bleeding, infection, seroma, hematoma, bruising, swelling, loss of sensation to skin, partial or complete loss of skin flap, wound breakdown, need for wound care, poor scarring, poor aesthetic outcome, intra operative cardiac or neurologic events, DVT, PE, and reaction to anesthesia. Encouraged patient to stop smoking as it may have deleterious effects on wound healing. Urine Output - 1000 ml. I used Eliazar absorbable hemostat, (I used one vial in the forehead wound and nasal wound. Reference Number - [id number]. Lot Number - [id number]. Expiration - March 09, 2027. Surgeon: Art Broussard MD brim stitcher: Julian New RNFA Type of Anesthesia: General Anesthesiologist: Landry Romeo MD and Jodi Maharaj CRNA Specimen's removed: Left nasal alar rim and lateral nasal sidewall with extension into underlying cartilage and nasal mucosa and left supra-medial cheek and left upper lip basal cell carcinoma wound to Pathology and Microbiology. Drains: None. Estimated Blood Loss (mL): 150. Fluids Replaced: Urine Output - 1000 ml. Description of Procedure: Patient was taken to OR in supine position and was placed under general anesthesia.? The scalp and face and ears and neck areas were prepped and draped in the usual fashion.? SCD's were placed for DVT prophylaxis.? Perioperative antibiotics were given intravenously.? A wolff catheter was placed.? Using xylocaine with epinephrine, the forehead scar and the basal cell carcinoma wound (left lateral nasal alar rim and lateral nasal sidewall with extension through the cartilage and nasal mucosa and left supra-medial cheek and left upper lip) were infiltrated.? After waiting 5 minutes for the anesthetic to take effect, I proceeded with surgical preparation of this area using a curette to debride the granulation tissue as well as a scalpel to excise the scar at the edges in order for the forehead flap to heal better to fresh skin edges as opposed to scar tissue. ? Tissue was sent to Pathology for analysis to evaluate for carcinoma and to Microbiology for culture.? A positive culture will necessitate antibiotic therapy. ? The debridement went into the subcutaneous tissue.? I marked out the nasal wound defect with a piece of foil from a suture packet.? I used the opposite nasal alar area to help with symmetry. I placed the foil onto the forehead flap delay and there was a few mm extra tissue in all directions. He sustained a small area of flap compromise with a dry eschar. I probably would have a much larger area of skin necrosis if I didn't delay the forehead flap. ? A small portion of the flap extended into his anterior hairline with sparse growth of hair because of the possibility of needing the extra length to provide a turnover flap for lining.? After healing has occurred, if some residual hairs exist on his flap then can proceed with laser hair removal. With a scalpel,? I went through the previous scarring from the delay procedure. I re-elevated the forehead flap distally in the subcutaneous tissue superficial to the underlying muscle and in the middle of the forehead flap the dissection went deep to the frontalis muscle in the subgaleal plane. When I got to the medial eyebrow, I dissected deep in the subperiosteal plane to protect the supratrochlear artery.? I then rotated the forehead flap in a counterclockwise direction.? It fit into the defect with minimal tension.? No abnormal kinking was noted in the pedicle after this rotation.? I then put the forehead flap back onto the forehead while I dissect out mucoperichondrial flaps for lining.? I made a horizontal incision to bring down a bipedicle vestibular advancement flap thus transferring the mucosal defect from the rim to the middle vault area. ?Initially, I had to excise and debride the scar tissue over this nasal lining to make it more pliable for advancement. A contralateral dorsal septal mucoperichondrial hinge flap was then designed to cover the lining defect in the middle vault area.? The size of the defect was 1.5 x 3 cm. Patient had a deviated septum to the right side and getting exposure to create the flap through the right nares was difficult. Therefore, I designed an ipsilateral septal mucoperichondrial hinge flap was then designed.? The ipsilateral mucoperichondrial flap was based on blood supply anteriorly by the nasal spine.? Incision was made from the caudal septum up along the nasal dorsum and po steriorly back toward the nasal spine.?I include perichondrium with the flap. From the left nares, I had better exposure to the septal cartilage that will be used for nasal framework support. ? A piece of cartilage was harvested from the septum to provide support. I made sure there was a 1 cm width of cartilage for the L-strut for support.? There was enough septal cartilage harvested that I was able to support the upper lateral cartilage in the middle nasal vault and the lower lateral cartilage as well without having to go to the ear for additional cartilage.?? Care was taken when I harvested the septal cartilage to not compromise the dorsal base of the contralateral mucoperichondrial flap by mobilizing the contralateral flap with an elevator to include the perichondrium with the contralateral flap. It was easier to design the contralateral flap from the left nares once the cartilage was removed. I marked out a width of 1.5 cm and a length of 3 cm. I made mucosal incisions and the contralateral mucoperichondrial flap was created. I created space superiorly to the dorsal cartilage strut to pass the contralateral flap from the right nares to the left nares. Before securing the flap to the existing nasal mucosal edges on the left, I tacked down the ipsilateral flap to the septum and secured it to the septal mucosa with 5-0 Chromic simple interrupted sutures. This way, the ipsilateral flap is available in the future, and by tacking it back down to the septum, it minimizes the risk of developing a nasal septal perforation. I secured the contralateral dorsal septal mucoperichondrial hinge flap to the existing nasal mucosal wound in the left nares. I cut a piece of cartilage from the septal cartilage harvested to be used to support the lower lateral cartilage and the forehead flap to minimized contraction of the flap upwards. Using 6-0 PDS I proceeded with horizontal mattress sutures to the remnant of lower lateral cartilage in the nasal tip anteriorly. Posteriorly I secured the cartilage graft to the subcutaneous tissue in the area of the piriform aperture. I also secured the cartilage graft to the base of the wound to minimize flap contraction with 6-0 PDS interrupted sutures. The remaining septal cartilage graft was used to provide support for the upper lateral cartilage of the middle nasal vault. Using 6-0 PDS I proceeded with horizontal mattress sutures securing the upper lateral cartilage graft to the lower lateral cartilage graft. The lower lateral cartilage graft was placed on top of the upper lateral cartilage graft. I then placed the forehead flap over the nasal defect.? It was sutured into place with 5-0 Monocryl simple interrupted and vertical mattress interrupted sutures.? I thinned out the distal portion of the flap conservatively to aid in the inset of the flap to the nasal alar rim and to provide a turnover flap since some of the bipedicled mucosal advancement flap was tearing with suture placement. The nasal lining at the nasal alar rim was secured to the turnover flap which is the distal portion of the forehead flap with 5-0 Monocryl simple interrupted and vertical mattress interrupted sutures.? The forehead flap remained pink and viable during this portion of the surgery.? There is some bulkiness at the level of the alar rim, and later on it can be de-bulked to improve nasal alar rim contour. I went to the forehead wound and undermined the medial and lateral skin flaps at the level of the periosteum.?I undermined the skin flaps 3 cm on each side of the forehead wound. Hemostasis was obtained with electrocautery.? The wound was irrigated with saline.? I sprayed Eliazar absorbable hemostat into the wound to minimize seroma formation.? I closed as much of the forehead wound as I could in a complex fashion with 2-0 Vicryl figure of eight interrupted sutures for the deep galeal layer.? The deep dermis and subcutaneous tissue was approximated with 3-0 Vicryl interrupted sutures.? The skin was approximated with 4-0 Nylon simple interrupted and vertical mattress sutures. It was a 5 cm complex closure repair. The superior aspect of the forehead wound by the anterior hairline was not able to be closed.? No exposed bone seen as the muscle layer was present in this area.? The size of the wound defect on the superior forehead by the hairline was 3 x 3 cm.? I dressed the forehead wound with a Silver dressing.? Antibiotic ointment was applied to the remaining suture line on the forehead.? This was covered with 4x4 gauze.? For the forehead flap,? I then wrapped Xeroform gauze around the pedicle of the forehead flap to cover the exposed undersurface of the flap. I placed antibiotic ointment over the Xeroform gauze followed by 4x4 gauze to aid in absorbing any drainage.? I packed the nasal passages with Xeroform gauze.? At the end of the surgery, the flap was pink and soft and viable with no evidence of vascular compromise.? There was no clinical evidence of hematoma. I applied a compression dressing to the forehead with a Kerlix gauze and dory wrap which can be removed in a couple of days. Patient tolerated the procedure well and was sent to PACU in satisfactory condition.? Patient will be sent upstairs for continued postop care. Patient was given IV steroids during the surgery to minimize swelling on the forehead flap's vascular pedicle which could compromise the viability of the flap. He will keep his head elevated during the initial postoperative period.? It will be difficult to be able to wear glasses with the flap in place. ? He will be given a dose of Lovenox tomorrow for DVT prophylaxis.? Will tentatively schedule the next stage of this complex nasal reconstruction process which is division and inset of the forehead flap in 6 weeks because of his smoking history. He will then followup in the office early next week on Wednesday, for a wound check and to discuss the Pathology report and the Microbiology report. A positive culture may necessitate antibiotic modification. He is being treated perioperatively thus far with Levaquin. Grafts/Implants Used: Eliazar. Procedure Start Time: 08:22 Procedure Stop Time: 14:23 Complications None. Admit VTE Documentation VTE Present on Admission: No VTE Mechan Device Prophylaxis: SCD's VTE Pharm Prophylaxis ordered?: Yes Addendum Addendum: Surgery Charges CPT - 62080 ICD-10 - C44.311, C44.319, C44.01, S01.20xA, S01.402A, S01.501A, I96, F17.200 60248 C44.311, C44.319, C44.01, S01.20xA, S01.402A, S01.501A, I96, F17.200 47178 C44.311, C44.319, C44.01, S01.20xA, S01.402A, S01.501A, I96, F17.200 51416 C44.311, C44.319, C44.01, S01.20xA, S01.402A, S01.501A, I96, F17.200 49720 C44.311, C44.319, C44.01, S01.20xA, S01.402A, S01.501A, I96, F17.200 56100 C44.311, C44.319, C44.01, S01.20xA, S01.402A, S01.501A, I96, F17.200 36502 C44.311, C44.319, C44.01, S01.20xA, S01.402A, S01.501A, I96, F17.200
[2022-08-07 15:52] LABS: Bedside Glucose 157 mg/dL (74-106)
[2022-08-07] MEDS: Lactated Ringers 1,000 ML 60 ML IV (17:10)
[2022-08-07] MEDS: Juven (unflavored) Packet 1 PACKET PO (17:10)
[2022-08-07] MEDS: Ipratropium/Albuterol Sulfate 3 ML AMPUL.NEB INHALATION (20:40)
[2022-08-07] MEDS: MethylPREDNISolone 125 MG/2 ML Vial IV (21:24)
[2022-08-07] MEDS: 0.9% Saline Lock 10 ML Syringe IV ×2 (21:24→23:39)
[2022-08-07] MEDS: Docusate Sodium 100 MG Capsule PO (21:24)
[2022-08-07] MEDS: HYDROmorphone 1 MG/ML Syringe IV (23:40)
[2022-08-08] MEDS: MethylPREDNISolone 125 MG/2 ML Vial IV ×2 (05:17→13:51)
[2022-08-08 05:25] VITALS: BP 125/82; PULSE 74; RESP 17; TEMP 36.9; O2SAT 96
--- NOTE | 2022-08-08 05:40 | NURSING ---
wolff cath from surgery d/c.
[2022-08-08 06:15] LABS: Hematocrit 41.6 % (40-54); Hemoglobin 13.8 g/dL (13.0-16.5); Mean Corp Hgb Conc 33.2 g/dL (32-36); Mean Corpuscular Hgb 30.8 pg (27.0-32.0); Mean Corpuscular Volume 92.9 fL (80-94); Mean Platelet Vol. 8.4 fl (6.2-12.0); Platelet Count 288 K/mm3 (150-450); RBC Distribution Width CV 12.4 % (11.6-14.6); RBC Distribution Width SD 42.7 fl (35.1-43.9); Red Blood Count 4.48 M/mm3 (4.6-6.2); White Blood Count 10.2 K/mm3 (4.4-11.0)
[2022-08-08 06:46] VITALS: PULSE 88; RESP 18; O2SAT 97
[2022-08-08] MEDS: Ipratropium/Albuterol Sulfate 3 ML AMPUL.NEB INHALATION ×2 (06:46→13:32)
[2022-08-08 07:25] LABS: Anion Gap 5 (5-15); BUN 9 mg/dL (7-18); BUN/Creat Ratio 9.9 RATIO (10-20); Calcium,Total 9.3 mg/dL (8.5-10.1); Chloride 104 mmol/L (98-107); Creatinine, Serum 0.91 mg/dL (0.70-1.30); EST Glomerular Filtration Rate 93 mL/min (>60); Est Glom Filt Rate - Afr Amer 113 mL/min (>60); Estimated Creatinine Clearance 102.28 ml/min; Glucose 141 mg/dL (74-106); Prealbumin 23.4 mg/dL (20.0-40.0); Sodium Level 135 mmol/L (136-145)
[2022-08-08] MEDS: Lactated Ringers 1,000 ML 15 ML IV (08:15)
[2022-08-08] MEDS: Juven (unflavored) Packet 1 PACKET PO (08:15)
[2022-08-08 09:11] VITALS: BP 134/74; PULSE 70; RESP 18; TEMP 37; O2SAT 96
[2022-08-08] MEDS: Docusate Sodium 100 MG Capsule PO (10:01)
[2022-08-08] MEDS: Enoxaparin 40 MG/0.4 ML Syringe SC (10:02)
--- NOTE | 2022-08-08 10:05 | CASEMGMT ---
JULIANO NG DC Planning: Face to face with pt at bedside. Pt sitting on edge of bed, alert and oriented x4. JULIANO NG role introduced to patient. Pt agreeable to discussing dc needs. Pt states he does not anticipate any needs at this time. Noted documentation that pt has been ambulating in the halls unassisted and without difficulty. Pt states this is his third surgery and he has been having dressing changes performed at Dr. Broussard's office prior to admission. Pt states he has a follow-up appointment already scheduled for this Wednesday. Pt anticipates his dressings will be changed at this appointment and at the office going forward as was previously done. Will continue to monitor for any change in plans and will assist as needs identified. Song Mackey RN CM
[2022-08-08] MEDS: levoFLOXacin IV 750 MG/150 ML BAG 100 MG IV (10:09)
--- NOTE | 2022-08-08 10:21 | PCM.DC ---
Discharge Instructions Diet Discharge Diet: No restrictions and - (encourage nutritional supplementation with protein to help the healing process.) Activity Discharge Activity: May Drive (when not taking pain medication.), May Shower (on the days he comes to the office for Silver dressing change.) and - (keep head elevated. 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 Keep extremity elevated above heart level: - (keep head elevated.) Dressing / Incision Call your doctor if your incision/area has: Continuous Slow Oozing, Sudden Increased Bleeding, Increased Redness, Foul Smelling Discharge and Swelling at the incision site Call your doctor if you observe: Fever of 101 or Higher, Coldness, Increased Pain, Shortness of breath, Chest pain, Calf discomfort and Uncontrolled pain Suture Line Care: - (apply antibiotic ointment daily to the nasal suture lines and forehead suture line.) Change Dressing in: leave in place till F/U (will change the operative nasal dressing, cheek dressing, and forehead dressing in the office.) Cleanse incision/area with: Soap & Water (may get incisions wet in the shower on the days the Silver dressing is changed in the office.) Follow Up Care Please Follow Up With: Art Broussard MD When: Wednesday08/10/22 at 400pm. Test Results: Test results from this visit will be discussed in further detail at your follow-up appointment, if applicable. Discharge Plan Admission Admit Date/Time: 08/07/22 15:37 Primary Reason for Your Visit: complex nasal reconstruction with forehead flap Attending Provider: Art Broussard Primary Care Provider: Care Physician,Erika Primary Discharge Orders/Prescriptions Prescriptions: No Action Nicotrol 10 mg cartridge 1 inh inhalation ONCE PRN (Reason: nicotine cravings) Qty: 168 8RF Anoro Ellipta 62.5-25 mcg/actuation blister with device 1 inh inhalation DAILY Qty: 60 8RF levofloxacin 500 mg tablet 500 mg PO DAILY 10 Days Qty: 10 0RF oxycodone-acetaminophen 5-325 mg tablet 1 tab PO TID PRN (Reason: Pain) Label Comments: TAKE 1 TABLET BY MOUTHiEVERY 6 HOURS NEEDED FOR PAIN ( SCALE SCORE 7-10) FOR 7 DAYS ipratropium-albuterol 0.5 mg-3 mg(2.5 mg base)/3 mL solution for nebulization 3 ml inhalation Q6H PRN (Reason: shortness of breath or wheezing) Qty: 180 2RF (DME) Nebulizer machine See Rx Instructions .ROUTE .MEDSUPPLY Qty: 1 0RF Rx Instructions: As directed (DME) Supplies for nebulizer machine See Rx Instructions .ROUTE .MEDSUPPLY Qty: 1 0RF Rx Instructions: Tubing, plastic nebulizer cups, renewable every 30-90 days per insurance. Use every 4-6 hours with liquid respiratory medication as directed. oxycodone-acetaminophen [Percocet] 5-325 mg tablet 1 tab PO Q6H PRN (Reason: pain (scale score 7-10)) 7 Days Qty: 28 0RF Rx Instructions: 28 tabs (twenty-eight) levofloxacin 750 mg tablet 750 mg PO DAILY Qty: 21 1RF L.acidoph,saliva-B.bif-S.therm [Acidophilus Probiotic Blend] 175 mg capsule 1 cap PO DAILY Qty: 30 1RF Referrals / Follow Up: Art Broussard MD [[facility] Staff - Active Staff] - (followup Wednesday08/10/22) Care Physician,No Primary [Primary Care Provider] - Disposition Disposition (needs filled in before D/C Order can be placed): Home, Self Care
[2022-08-08 13:32] VITALS: PULSE 105; RESP 18
[2022-08-08] MEDS: 0.9% Saline Lock 10 ML Syringe IV (13:50)
[2022-08-08 13:53] VITALS: BP 129/77; PULSE 88; RESP 18; TEMP 36.9; O2SAT 96
--- NOTE | 2022-08-08 14:25 | PN.SURG_ITS ---
Subjective Subjective Postop #1 Patient has some incisional pain. Tolerable. Able to void after the wolff was removed. Tolerated the Silver dressing changes. Objective Data Objective Data Vital Signs: Vital Signs Temp Pulse Resp BP Pulse Ox O2 Del Method O2 Flow Rate 98.4 F 88 18 129/77 H 96 Room Air 2 08/08/22 13:53 08/08/22 13:53 08/08/22 13:53 08/08/22 13:53 08/08/22 13:53 08/08/22 13:53 08/07/22 15:30 Oxygen Flow Rate (L/min) 2 Oxygen Delivery Method Room Air Weight: 197 lb 15.602 oz Body Mass Index (BMI) 27.6 Intake & Output: Intake and Output for Last 24 Hours 08/06/22 08/07/22 08/08/22 23:59 23:59 23:59 Intake Total 1250 / 1250 2393.25 / 2393.25 Output Total 1950 / 1950 600 / 600 Balance -700 / -700 1793.25 / 1793.25 Prealbumin was 23.4. Encourage nutritional supplementation with protein to help the healing process. Lab / Micro Data Attestation: I reviewed the patient's lab results. Result Diagrams: 08/08/22 05:56 08/08/22 05:56 Labs: Laboratory Results - last 24 hr 08/07/22 15:20: POC Glucose 157 H 08/08/22 05:56: WBC 10.2, RBC 4.48 L, Hgb 13.8, Hct 41.6, MCV 92.9, MCH 30.8, MCHC 33.2, RDW Std Deviation 42.7, RDW Coeff of Garth 12.4, Plt Count 288, MPV 8.4 08/08/22 05:56: Sodium 135 L, Potassium 4.0, Chloride 104, Carbon Dioxide 26.0, Anion Gap 5, BUN 9, Creatinine 0.91, Estim Creat Clear Calc 102.28, Est GFR (MDR D) Af Amer 113, Est GFR (MDRD) Non-Af 93, BUN/Creatinine Ratio 9.9 L, Glucose 141 H, Calcium 9.3, Prealbumin 23.4 Micro: Microbiology 08/07/22 09:01 Incision/Surgical Site Gram Stain - Final 08/07/22 09:01 Incision/Surgical Site Wound Culture - Preliminary Mixed Gram Positive Organisms Physical Exam Narrative General - Alert and Oriented. HEENT - PERRL. EOMI. Forehead and nasal incisions are dry and intact. Forehead flap to left side of nose is pink and soft. No vascular compromise noted on the forehead flap. Good nasal contour noted. Mild swelling present. Left forehead wound and left cheek wound are clean with granulation tissue. Tolerated Silver dressing change. Neck - Supple and nontender. Abdomen - Soft and nondistended. Neuro - CN II-XII grossly intact. Psych - Normal mood and affect. Assessment & Plan Assessment/Plan (1) Basal cell carcinoma (BCC) of left side of nose: (2) Basal cell carcinoma (BCC) of left medial cheek: (3) Basal cell carcinoma (BCC) of skin of left upper lip: (4) Open wound of nasal cavity: (5) Open wound of left cheek: (6) Open wound of lip: (7) Open wound of forehead: (8) Skin flap necrosis: (9) Smoker: PLAN: Plan Patient is tolerating po analgesia. He was able to void after the wolff catheter was removed. He is steady on his feet with ambulation. Forehead compression dressing removed. Forehead and nasal incisions are dry and intact. Forehead flap to left side of nose is pink and soft. No vascular c ompromise noted on the forehead flap. Good nasal contour noted. Mild swelling present. Left forehead wound and left cheek wound are clean with granulation tissue. Tolerated Silver dressing change. No active bleeding noted. Prealbumin was 23.4. Encourage nutritional supplementation with protein to help the healing process. Hgb stable at 13.8. No active bleeding noted. Discharge home today. Keep head elevated. Continue 10 lb lifting restriction. Patient may shower on the days he comes to the office for a Silver dressing change to forehead and left cheek. Operative culture shows Mixed Gram positive organisms thus far. He was treated with Levaquin 750mg daily for now from a preop culture done on 07/31/22. It showed Staphylococcus epidermidis. Intermediate sensitivity to Levaquin, thus the increased dose. When the final operative culture is available, antibiotic modification may be necessary. Wrote scripts for Levaquin 750mg, Percocet for pain (28 tabs), and Acidophilus Probiotic. Followup office 08/10/22 for a Silver dressing change and a wound check. Encouraged patient to stop smoking as it may have deleterious effects on wound healing.
[2022-08-08 14:57] VITALS: BP 126/77; PULSE 96; RESP 18; TEMP 36.9; O2SAT 96
== END 2022-08-08 14:48 | disposition home or self-care (01) ==
LOC: SDC 16:14 → MS3 08-08 14:25
PROVIDERS: Admitting Provider Surgery; Referring Provider Surgery; Visit Provider Surgery
PROC: (CPT 30420; principal; 2022-08-07 07:15)
DX: C44.01 Basal cell carcinoma of skin of lip (principal); I96 Gangrene, not elsewhere classified; J34.2 Deviated nasal septum; C44.311 Basal cell carcinoma of skin of nose; C44.319 Basal cell carcinoma of skin of other parts of face; F17.210 Nicotine dependence, cigarettes, uncomplicated; S01.20XA Unspecified open wound of nose, initial encounter; S01.402A Unspecified open wound of left cheek and temporomandibular area, initial encounter; S01.501A Unspecified open wound of lip, initial encounter; X58.XXXA Exposure to other specified factors, initial encounter
CPT/HCPCS: 15004; 15731; 20912; 14060 ×2; 15576; 13132; 00300; 36415; 80048; 82962; 84134; 85027; 87070; 87075; 87077; 87102; 87186; 87205; 87206; 88305; 94640; 94668; 96365; 96366; 96372; 96375; 96376; 99221; 99252; 99406; J7120; A4216; G0378; G0463; J2405; Q9968

== ENCOUNTER 2022-09-16 06:03 | Day surgery (SDC) | payer OTHER, SELFPAY ==
--- NOTE | 2022-09-15 22:32 | PCM.HP.BLA ---
History and Physical Date of Admission: 09/16/22 HISTORY OF PRESENT ILLNESS 52 year old man presented with an extensive ulcerated lesion left nasal alar rim and lateral nasal sidewall with erosion into underlying cartilage and nasal mucosa with extension to the left supra-medial cheek and left upper lip that enlarged in size over the last several months.? A punch biopsy was done on 02/06/22.? It showed a nodular basal cell carcinoma.? He denies fever.? He denies trauma.? He denies recent infection.? He denies bleeding.? A CT of his sinuses was done on 04/14/22 which showed no underlying bony involvement.? He went to surgery on 06/05/22 where he underwent excision 3 cm ulcerated erosive nodular basal cell carcinoma left nasal alar rim and lateral nasal sidewall with erosion into underlying cartilage and nasal mucosa with partial rhinectomy and radical excision 1.5 cm ulcerated erosive nodular basal cell carcinoma extension left supra-medial cheek involving underlying muscle and radical excision 1 cm ulcerated erosive nodular basal cell carcinoma extension left upper lip involving underlying muscle. Pathology showed basal cell carcinoma, superficial nodular, ulcerated and deeply invasive, extending focally to the deep margin of excision.? The basal cell carcinoma in area is deeply invasive involving skeletal muscle and focal perineural invasion.? The lesion extends focally to the central deep soft tissue margin of excision.? No skeletal muscle is identified in this region.? There were no issues with wound care with Silver dressings after surgery.? He went back to the operating room on 06/25/22 where he underwent first stage complex nasal reconstruction basal cell carcinoma wound left nasal alar rim and lateral nasal sidewall with erosion into underlying cartilage and nasal mucosa with left paramedian forehead flap delay and surgical preparation left supra-medial cheek and left upper lip with excisional debridement basal cell carcinoma wound and reconstruction left supra-medial cheek basal cell carcinoma wound with cervicofacial rotation advancement skin flap (72 cm2). ? Pathology of the left supra-medial cheek and left upper lip showed extensive ulceration, acute and chronic inflammation, granulation tissue reaction and foreign body giant cell reaction.? Negative for malignancy.? It was the cheek and the lip where there was invasion of basal cell carcinoma into the muscle on the initial excision on 06/05/22.? There was an additional Pathology specimen of the left supra-medial cheek located more medially than the first specimen, and it showed ulceration, acute and chronic inflammation, granulation tissue reaction and foreign body giant cell reaction.? Negative for malignancy. Postoperatively he developed some compromise to the cervicofacial rotation advancement flap distally (about 40%) with the development of? dry skin eschar.? Some of the eschar was sharply debrided at some of his postoperative visits to help with drainage and allow better wound healing with Silver placement on the open wounds.? The dry eschar acts as a biologic dressing with less exposure of open wounds which generally means less pain during the healing process.? Also by leaving a portion of the remaining flap attached to the dry eschar which in turn is attached to the skin edge superiorly, it maintains some stretch on the remaining flap to minimize some retraction of the remaining flap inferiorly thus widening the wound.? He also developed a small area of dry eschar at the distal portion of the forehead flap.? Patient attempted to stop smoking after the initial surgery and was successful for a couple of weeks but has restarted again but not as much, usually no more than half a pack a day.? After the creation of the forehead flap delay, we waited 6 weeks to maximize vascularity to the flap when it is rotated onto the nose which is what we are doing today.? When I created the forehead flap for delay, I made the flap a little larger in case we needed a turnover flap for nasal mucosal lining.? Besides rotation of the forehead flap, we will need cartilage grafts for support, usually from the septum and from the ear and, if necessary, the rib.? For the nasal mucosal lining, possibilities include a bipedicle mucosal advancement flap, a contralateral mucoperichondrial advancement flap, or an ipsilateral mucoperichondrial rotation flap.? Will also debride the rest of the eschar on the compromised flap left cheek. At the time of the surgery on 06/25/22, operative wound cultures were obtained.? They were positive for Staphylococcus aureus and Pseudomonas aeroginosa.? He was treated with Levaquin. ? On 07/31/22, another wound culture was done in preparation for upcoming surgery. It was positive for Staphylococcus epidermidis.? The Levaquin was intermediate in its sensitivity, so we increased the Levaquin dose to 750 mg per day. The left cheek wound and the left upper lip wound will be skin grafted at the next surgery which is division and inset of the forehead flap.? The surgical date was approxiimately 6 weeks after his previous surgery on 08/07/22. ? Patient was not interested in readvancement of the cervical facial flap because of the concern that there would be additional flap compromise since he started smoking again. PAST MEDICAL HISTORY Basal cell carcinoma (BCC) of left medial cheek Basal cell carcinoma (BCC) of left side of nose Basal cell carcinoma (BCC) of skin of left upper lip Bone fracture Smoker open surgical basal cell carcinoma wound left upper lip with involvement of underlying muscle open surgical basal cell carcinoma wound left supra-medial cheek with involvement of underlying muscle open surgical basal cell carcinoma wound left nasal alar rim and left lateral nasal sidewall with erosion into the cartilage and nasal mucosa Compromised flap left cheek PAST SURGICAL HISTORY Excision 3 cm ulcerated erosive nodular basal cell carcinoma left nasal alar rim and lateral nasal sidewall with erosion into underlying cartilage and nasal mucosa with partial rhinectomy and radical excision 1.5 cm ulcerated erosive nodular basal cell carcinoma extension left supra-medial cheek involving underlying muscle and radical excision 1 cm ulcerated erosive nodular basal cell carcinoma extension left upper lip involving underlying muscle - 06/05/22 First stage complex nasal reconstruction basal cell carcinoma wound left nasal alar rim and lateral nasal sidewall with erosion into underlying cartilage and nasal mucosa with left paramedian forehead flap delay and surgical preparation left supra-medial cheek and left upper lip with excisional debridement basal cell carcinoma wound and reconstruction left supra-medial cheek basal cell carcinoma wound with cervicofacial rotation advancement skin flap (72 cm2) - 06/25/22 2nd stage complex nasal reconstruction with surgical preparation left nasal alar rim and lateral nasal sidewall with extension into underlying cartilage and nasal mucosa and left supra-medial cheek and left upper lip with excisional debridement basal cell carcinoma wound and 2nd stage complex nasal reconstruction with left paramedian forehead flap for skin coverage and turnover flap for nasal lining, and contralateral dorsal septal mucoperichondrial hinge flap and ipsilateral bipedicled mucosal advancement flap for nasal lining, and cartilage grafting from nasal septum for support and 5 cm complex repair of left forehead flap donor wound - 08/07/22 ALLERGIES No Known Allergies MEDICATIONS Levaquin FAMILY HISTORY Other -?diabetes SOCIAL HISTORY Smoking Status:? Current every day smoker tobacco type: cigarettes alcohol intake:? never substance use type:? does not use REVIEW OF SYSTEMS General - Denies fever, fatigue, and weight loss. Eyes - Denies cataracts and glaucoma. ENT - Denies nasal congestion and sore throat. Endocrine - Denies excessive thirst and urination. Skin - Has an open basal cell carcinoma wound involving left upper lip with involvement of underlying muscle, left supra-medial cheek with involvement of underlying muscle, left nasal alar rim and left lateral nasal sidewall with erosion into the cartilage and nasal mucosa Musculoskeletal - Denies joint pain, joint stiffness, weakness of muscles and joints, and arthritis.? Has back pain. Neuro - Denies headaches. Cardiovascular - Denies chest pain, fatigue, and shortness of breath with exertion. Psych - Denies anxiety and depression. Respiratory - Denies chronic cough and shortness of breath.? Patient is a smoker. Gastrointestinal - Denies nausea, vomiting, diarrhea, and constipation. Hematologic - Denies abnormal bruising and bleeding. Genitourinary - Denies hematuria and urinary frequency. PHYSICAL EXAMINATION General - Alert and Oriented. HEENT - PERRL. EOMI.? Throat is clear.? On his left nasal alar rim and lateral nasal sidewall is a healing paramedian forehead flap. The flap is soft and pink and viable. Good nasal contour is noted. The left forehead wound is stable with good granulation tissue. There is some pincushioning left lower eyelid skin at the cheek/ lower eyelid crease. This leads to persistent swelling in the eyelids. On the left upper lip, there was a basal cell carcinoma wound defect which extends into underlying muscle and up to the nasal vestibule. During the healing process thus far there was some thickening of the scar along with some mild scar contracture leading to a small distortion on the lower lip. On the left supra-medial cheek there was a basal cell carcinoma wound defect which extends into underlying muscle. Healing scar tissue seen at the edges. Patient developed some residual dry eschar from compromise to a left cervico-facial rotation advancement flap.? That eschar has been debrided with good granulation tissue seen. The dry eschar has been excised and debrided. The left cheek wound showed good granulation tissue and healing. Neck - Supple and nontender.? No cervical adenopathy.? No suspicious lesions noted. Lungs - Clear to auscultation. Heart - Regular rate and rhythm. Abdomen - Soft and nondistended. Extremities - FROM. No axillary adenopathy.? Radial pulses are palpable.? No suspicious lesions noted. Neuro - CN II-XII grossly intact. Psych - Normal mood and affect. ASSESSMENT 1.? Basal cell carcinoma (BCC) of left supra-medial cheek with involvement of underlying muscle. 2.? Basal cell carcinoma (BCC) of left nasal alar rim and left lateral nasal sidewall with erosion into the cartilage and nasal mucosa. 3.? Basal cell carcinoma (BCC) of skin of left upper lip with involvement of underlying muscle. 4.? Open surgical basal cell carcinoma wound left upper lip with involvement of underlying muscle. 5.? Open surgical basal cell carcinoma wound left supra-medial cheek with involvement of underlying muscle. 6.? Open surgical basal cell carcinoma wound left nasal alar rim and left lateral nasal sidewall with erosion into the cartilage and nasal mucosa. 7.? Compromised flap left cheek. 8.? Smoker. PLAN PLAN We are proceeding with the next stage in the complex nasal reconstruction process which is division and inset of the forehead flap. The interval was 6 weeks because of the patient's smoking. At the same time will skin graft the left cheek and left upper lip basal cell carcinoma wounds defect and left forehead wound from creation of the forehead flap. Normally we allow the forehead wound to heal completely with continued wound care. In this patient, when he returns to work, the healing forehead wound may get compromised from wearing headgear. One way to minimize that is to proceed with skin grafting. He is not interested in readvancement of the cervicofacial flap because of his concern that additional compromised flap will occur since he started smoking again. Surgery will be done under general anesthesia on an outpatient basis. Patient was informed of the risks and complications of the procedure including alternatives to surgery.? These were discussed with the patient personally.? Patient voices understanding and wishes to proceed. Some of the risks and complications were included in a form from the [place] [employer] [employer]. Potential risks and complications included but not inclusive of bleeding, infection, seroma, hematoma, bruising, swelling, loss of sensation to skin, partial or complete loss of skin flap, wound breakdown, need for wound care, poor scarring, poor aesthetic outcome, intra operative cardiac or neurologic events, DVT, PE, and reaction to anesthesia. Encouraged patient to stop smoking as it may have deleterious effects on wound healing. A wound culture was done preoperatively on 07/31/22 because of redness and swelling of the left cheek wound.? It was positive for Staphylococcus epidermidis.? Levaquin is intermediate in its sensitivity so I increased the dose to 750 mg daily which he will continue through this next surgery. We obtained approval for HBO treatments for compromised flap.? He is awaiting cardiac and pulmonary clearance before starting. There was residual basal cell carcinoma in the muscle (left supra-medial cheek wound and left upper lip wound).? Radiation Oncology was involved and it was decided to wait until the surgeries are completed and reassess.? It was felt that the benefit of the radiation would only occur if it were done during the surgical process.? And by radiating the area, it would make continuing the reconstruction process problematic as evidenced by the compromised flap probably secondary to his history of smoking since the nicotine has a vasoconstrictive effect on the perforators to the skin.? It was decided that the benefit of minimizing recurrence did not outweigh the side effects of the radiation.? It would most likely commit the patient to further reconstruction using microvascular free tissue transfer that would be done at a tertiary center. Especially since it was a basal cell carcinoma and the second surgery showed no further evidence of malignancy. We are proceeding with into the complex left nasal defect.? I made the flap a little larger in case we needed a turnover flap for nasal mucosal lining.? Besides rotation of the forehead flap, we will need cartilage grafts for support, usually from the septum and from the ear and, if necessary, the rib.? For the nasal mucosal lining, possibilities include a bipedicle mucosal advancement flap, a contralateral mucoperichondrial advancement flap, or an ipsilateral mucoperichondrial rotation flap.? Will also debride the rest of the eschar on the compromised flap left cheek.? Will skin graft the left cheek and left upper lip basal cell carcinoma wound defect at the next stage of the complex nasal reconstruction process which is division and inset of the forehead flap which would be done in 6 weeks.? He is not interested in readvancement of the cervicofacial flap because of his concern that additional compromised flap will occur since he started smoking again. Surgery will be done under general anesthesia on an outpatient basis. ? Patient was informed of the risks and complications of the procedure including alternatives to surgery.? These were discussed with the patient personally.? Patient voices understanding and wishes to proceed. Some of the risks and complications were included in a form from the [place]. Potential risks and complications included but not inclusive of bleeding, infection, seroma, hematoma, bruising, swelling, loss of sensation to skin, partial or complete loss of skin flap, wound breakdown, need for wound care, poor scarring, poor aesthetic outcome, intra operative cardiac or neurologic events, DVT, PE, and reaction to anesthesia. Encouraged patient to stop smoking as it may have deleterious effects on wound healing. A wound culture was done on 07/31/22 because of redness and swelling of the left cheek wound.? It was positive for Staphylococcus epidermidis.? Levaquin is intermediate in its sensitivity so I increased the dose to 750 mg daily which he will continue through this next surgery. We obtained approval for HBO treatments for compromised flap.? He is awaiting cardiac and pulmonary clearance before starting. There was residual basal cell carcinoma in the muscle (left supra-medial cheek wound and left upper lip wound).? Radiation Oncology was involved and it was decided to wait until the surgeries are completed and reassess.? It was felt that the benefit of the radiation would only occur if it were done during the surgical process.? And by radiating the area, it would make continuing the reconstruction process problematic as evidenced by the compromised flap probably secondary to his history of smoking since the nicotine has a vasoconstrictive effect on the perforators to the skin.? It was decided that the benefit of minimizing recurrence did not outweigh the side effects of the radiation.? It would most likely commit the patient to further reconstruction using microvascular free tissue transfer that would be done at a tertiary center. Especially since it was a basal cell carcinoma and the second surgery showed no further evidence of malignancy.? Assessment & Plan Assessment/Plan (1) Open wound of nasal cavity: (2) Open wound of left cheek: (3) Open wound of lip: (4) Open wound of forehead: (5) Skin flap necrosis: (6) Basal cell carcinoma (BCC) of left side of nose: (7) Basal cell carcinoma (BCC) of left medial cheek: (8) Basal cell carcinoma (BCC) of skin of left upper lip: (9) Smoker:
[2022-09-16] VITALS (10 sets, daily range): BP systolic 124–155; BP diastolic 65–92; PULSE 89–107; RESP 16–18; TEMP 36.6–37.3; O2SAT 91–98; BMI 27.9
--- NOTE | 2022-09-16 | UL_PTH ---
PATIENT: AMADEO COOK SHARI LOC: [facility] [place] U#:[id number] AGE/SX: 52/M ROOM: RE09/16/[address]: Dr. Art Broussard MD : 1970 BED: DIS: 09/16/2022 SPEC #: [id number] RECD: 09/16/22 16:16 STATUS: RAUL MIKO #: [id number] ONEIL: 09/16/22 00:[address]: Art Broussard DEPT: SURGICAL PATHOLOGY RECD BY: Km Bray ENTERED: 09/17/22 09:27 SP TYPE: ULCER OTHR DR: No Primary Care Phys Tissues: ULCER Procedures: Surgery Specimen Level IV HEADER OPERATION: Third stage complex nasal reconstruction with division PRE-OP DIAGNOSIS: Open wound of nasal cavity, cheek, lip and forehead, skin flap necrosis, BCC of Left side of nose, left medial cheek and skin of left upper lip TISSUE SUBMITTED: Left cheek wound and upper lip MICROSCOPIC DIAGNOSIS Left cheek wound and upper lip, nasal reconstruction: Pieces of skin with underlying tissue with skeletal muscle tissue with acute and chronic inflammation and foreign body giant cell reaction. Negative for malignancy. [email or web address] 09/18/2022 COMMENT Please make reference to previous specimen ([id number]) skin lesion left nasal sidewall, superior cheek, excision with diagnosis of ?basal cell carcinoma.? MICROSCOPIC DESCRIPTION Slides are reviewed. GROSS DESCRIPTION Received in fixative is one container labeled with the patient's name and designated left cheek wound and upper lip. The specimen consists of multiple variable sized pieces of skin and duvall soft tissue that in aggregate measure 3.5 x 3.5 x 1.0 cm. The larger pieces are bisected. The entire specimen is submitted in three cassettes. / [email or web address]:juan 09/17/2022 TC:3 CPT: 70547
[2022-09-16] MEDS: Lactated Ringers 1,000 ML 15 ML IV ×2 (06:42→15:09)
[2022-09-16] MEDS: levoFLOXacin IV 500 MG/100 ML BAG 100 MG IV (06:42)
[2022-09-16] MEDS: Lidocaine 2% /Epi 1:100 (20ml) 20 ML VIAL ×2 (08:20→11:00)
[2022-09-16] MEDS: Mupirocin Ointment 22gm Tube 1 APPLIC (13:16)
[2022-09-16] MEDS: Ipratropium/Albuterol Sulfate 3 ML AMPUL.NEB INHALATION (15:49)
--- NOTE | 2022-09-16 16:28 | DCINST_ITS ---
Discharge Instructions Diet Discharge Diet: No restrictions and - (encourage nutritional supplementation with protein to help the healing process.) Activity Discharge Activity: May Not Drive, May Shower (from the neck down. may wash face gently in the sink.) and - (head elevated. 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 may wash face gently in the sink.) May resume sexual activity in: 10-14 days Ice area for (Minutes): 5 (as needed for facial swelling.) Weight Bearing Status: Weight bearing as tolerated Lifting Restrictions: 10 lbs. Keep extremity elevated above heart level: - (elevate head.) Dressing / Incision Call your doctor if your incision/area has: Continuous Slow Oozing, Sudden Increased Bleeding, Increased Pain/ Swelling, Increased Redness, Foul Smelling Discharge and Swelling at the incision site Call your doctor if you observe: Fever of 101 or Higher, Coldness, Increased Pain, Shortness of breath, Chest pain, Calf discomfort and Uncontrolled pain Suture Line Care: - (apply antibiotic ointment to suture lines daily.) Change Dressing in: do not change dressing (will change the skin graft dressings (left upper lip, left cheek, and forehead) in office) Remove Dressing in: 2 days (right neck dressing only.) Cleanse incision/area with: - (may shower from the neck down and wash face gently in the sink) Follow Up Care Please Follow Up With: Art Broussard MD When: Wednesday09/21/22. call [phone] for appt time. Test Results: Test results from this visit will be discussed in further detail at your follow- up appointment, if applicable. Discharge Plan Admission Primary Reason for Your Visit: complex nasal reconstruction with division and inset of forehead flap Attending Provider: Art Broussard Primary Care Provider: Care Physician,No Primary Discharge Orders/Prescriptions Prescriptions: New levofloxacin 750 mg tablet 750 mg PO DAILY Qty: 10 0RF L.acidoph,saliva-B.bif-S.therm [Acidophilus Probiotic Blend] 175 mg capsule 1 cap PO DAILY Qty: 30 0RF oxycodone-acetaminophen [Percocet] 5-325 mg tablet 1 tab PO Q6H PRN (Reason: pain (scale score 7-10)) 7 Days Qty: 28 0RF Rx Instructions: 28 tabs (twenty-eight) Continued Anoro Ellipta 62.5-25 mcg/actuation blister with device 1 inh inhalation DAILY Qty: 60 8RF ipratropium-albuterol 0.5 mg-3 mg(2.5 mg base)/3 mL solution for nebulization 3 ml inhalation Q6H PRN (Reason: shortness of breath or wheezing) Qty: 180 2RF (DME) Nebulizer machine See Rx Instructions .ROUTE .MEDSUPPLY Qty: 1 0RF Rx Instructions: As directed (DME) Supplies for nebulizer machine See Rx Instructions .ROUTE .MEDSUPPLY Qty: 1 0RF Rx Instructions: Tubing, plastic nebulizer cups, renewable every 30-90 days per insurance. Use every 4-6 hours with liquid respiratory medication as directed. Referrals / Follow Up: Care Physician,No Primary [Primary Care Provider] - Disposition Disposition (needs filled in before D/C Order can be placed): Home, Self Care
--- NOTE | 2022-09-16 16:28 | OP.PCM_ITS ---
Problems Associated Problem List Diagnoses (1) Basal cell carcinoma (BCC) of left side of nose: (2) Basal cell carcinoma (BCC) of left medial cheek: (3) Basal cell carcinoma (BCC) of skin of left upper lip: (4) Open wound of nasal cavity: (5) Open wound of left cheek: (6) Open wound of lip: (7) Open wound of forehead: (8) Skin flap necrosis: (9) Smoker: (10) History of basal cell carcinoma excision: (11) Scar contracture: Report of Operation Date of Procedure: 09/16/22 Pre-Operative Diagnosis: 1. Basal cell carcinoma (BCC) of left supra-medial cheek with involvement of underlying muscle. 2. Basal cell carcinoma (BCC) of left nasal alar rim and left lateral nasal sidewall with erosion into the cartilage and nasal mucosa. 3. Basal cell carcinoma (BCC) of skin of left upper lip with involvement of underlying muscle. 4. Open surgical basal cell carcinoma wound left upper lip with involvement of underlying muscle with scar contracture. 5. Open surgical basal cell carcinoma wound left supra-medial cheek with involvement of underlying muscle with pincushioning scar contracture left lower eyelid crease. 6. Open surgical basal cell carcinoma wound left nasal alar rim and left lateral nasal sidewall with erosion into the cartilage and nasal mucosa. 7. Open surgical donor wound left forehead after rotation of forehead flap. 8. Status complex nasal reconstruction with left paramedial forehead flap. 9. Compromised flap left cheek. 10. Smoker. Post-Operative Diagnosis: Same. Surgery/Procedure Performed:: 1. 3rd stage complex nasal reconstruction with division and inset left paramedian forehead flap. 2. Surgical preparation left upper lip scar contracture with excisional debridement basal cell carcinoma wound with FTSG reconstruction from right neck (10 cm2). 3. Surgical preparation left supra-medial cheek and left lower eyelid crease pincushioning scar contracture with excisional debridement basal cell carcinoma wound with FTSG reconstruction from right neck (18 cm2) and W-plasty left lower eyelid crease (3 cm2) and readvancement of left cheek flap (15 cm2). 4. Surgical preparation left forehead with excisional debridement forehead wound from formation of forehead flap for complex nasal reconstruction with FTSG reconstruction from forehead flap pedicle (7.5 cm2). Description of Surgical Findings:: 52 year old man presented with an extensive ulcerated lesion left nasal alar rim and lateral nasal sidewall with erosion into underlying cartilage and nasal mucosa with extension to the left supra-medial cheek and left upper lip that enlarged in size over the last several months.? A punch biopsy was done on 02/06/22.? It showed a nodular basal cell carcinoma.? He denies fever.? He denies trauma.? He denies recent infection.? He denies bleeding.? A CT of his sinuses was done on 04/14/22 which showed no underlying bony involvement.? He went to surgery on 06/05/22 where he underwent excision 3 cm ulcerated erosive nodular basal cell carcinoma left nasal alar rim and lateral nasal sidewall with erosion into underlying cartilage and nasal mucosa with partial rhinectomy and radical excision 1.5 cm ulcerated erosive nodular basal cell carcinoma extension left supra-medial cheek involving underlying muscle and radical excision 1 cm ulcerated erosive nodular basal cell carcinoma extension left upper lip involving underlying muscle. Pathology showed basal cell carcinoma, superficial nodular, ulcerated and deeply invasive, extending focally to the deep margin of excision.? The basal cell carcinoma in area is deeply invasive involving skeletal muscle and focal perineural invasion.? The lesion extends focally to the central deep soft tissue margin of excision.? No skeletal muscle is identified in this region.? There were no issues with wound care with Silver dressings after surgery.? He went back to the operating room on 06/25/22 where he underwent first stage complex nasal reconstruction basal cell carcinoma wound left nasal alar rim and lateral nasal sidewall with erosion into underlying cartilage and nasal mucosa with left paramedian forehead flap delay and surgical preparation left supra-medial cheek and left upper lip with excisional debridement basal cell carcinoma wound and reconstruction left supra-medial cheek basal cell carcinoma wound with cervicofacial rotation advancement skin flap (72 cm2). ? Pathology of the left supra-medial cheek and left upper lip showed extensive ulceration, acute and chronic inflammation, granulation tissue reaction and foreign body giant cell reaction.? Negative for malignancy.? It was the cheek and the lip where there was invasion of basal cell carcinoma into the muscle on the initial excision on 06/05/22.? There was an additional Pathology specimen of the left supra-medial cheek located more medially than the first specimen, and it showed ulceration, acute and chronic inflammation, granulation tissue reaction and foreign body giant cell reaction.? Negative for malignancy. Postoperatively he developed some compromise to the cervicofacial rotation advancement flap distally (about 40%) with the development of? dry skin eschar.? Some of the eschar was sharply debrided at some of his postoperative visits to help with drainage and allow better wound healing with Silver placement on the open wounds.? The dry eschar acts as a biologic dressing with less exposure of open wounds which generally means less pain during the healing process.? Also by leaving a portion of the remaining flap attached to the dry eschar which in turn is attached to the skin edge superiorly, it maintains some stretch on the remaining flap to minimize some retraction of the remaining flap inferiorly thus widening the wound.? He also developed a small area of dry eschar at the distal portion of the forehead flap.? Patient attempted to stop smoking after the initial surgery and was successful for a couple of weeks but has restarted again but not as much, usually no more than half a pack a day.? After the creation of the forehead flap delay, we waited 6 weeks to maximize vascularity to the flap when it is rotated onto the nose which is what we are doing today.? When I created the forehead flap for delay, I made the flap a little larger in case we needed a turnover flap for nasal mucosal lining.? Besides rotation of the forehead flap, we will need cartilage grafts for support, usually from the septum and from the ear and, if necessary, the rib.? For the nasal mucosal lining, possibilities include a bipedicle mucosal advancement flap, a contralateral mucoperichondrial advancement flap, or an ipsilateral mucoperichondrial rotation flap.? Will also debride the rest of the eschar on the compromised flap left cheek. At the time of the surgery on 06/25/22, operative wound cultures were obtained.? They were positive for Staphylococcus aureus and Pseudomonas aeroginosa.? He was treated with Levaquin. ? On 07/31/22, another wound culture was done in prepara tion for upcoming surgery.? It was positive for Staphylococcus epidermidis.? The Levaquin was intermediate in its sensitivity, so we increased the Levaquin dose to 750 mg per day. The left cheek wound and the left upper lip wound will be skin grafted at the next surgery which is division and inset of the forehead flap.? The surgical date was approximately 6 weeks after his previous surgery on 08/07/22.? ? Patient was not interested in readvancement of the cervical facial flap with further dissection and elevation of the flap inferiorly because of the concern that there would be additional flap compromise since he started smoking again. Patient was informed of the risks and complications of the procedure including alternatives to surgery. These were discussed with the patient personally. P atient voices understanding and wishes to proceed. Some of the risks and complications were included in a form from the [employer]. Potential risks and complications included but not inclusive of bleeding, infection, seroma, hematoma, bruising, swelling, loss of sensation to skin, partial or complete loss of skin flap and/or skin graft, wound breakdown, need for wound care, poor scarring, poor aesthetic outcome, intra operative cardiac or neurologic events, DVT, PE, and reaction to anesthesia. Encouraged patient to stop smoking as it may have deleterious effects on wound healing. IV Fluids - 3000 ml. Urine Output - 650 ml. I used Eliazar absorbable hemostat. Reference Number - [id number]. Lot Number - [id number]. Expiration - May 09, 2027. Surgeon: Art Broussard MD medical office receptionist assistant: Julian New RNFA Type of Anesthesia: General Anesthesiologist: Anirudh Reaves MD and Lawanda Felipe CRNA Specimen's removed: Left cheek and upper lip tissue to Pathology and Microbiology. Drains: None. Estimated Blood Loss (mL): 150. Fluids Replaced: 3650 ml (IV Fluids 3000 ml, Urine Output 650 ml). Description of Procedure: Patient was taken to OR in supine position and was placed under general anesthesia. The face and neck areas were prepped and draped in the usual fashion. SCD's were placed for DVT prophylaxis. Perioperative antibiotics were given intravenously. Using xylocaine with epinephrine, the scar contracture left upper lip, pincushioning scar contracture left lower eyelid crease and left cheek scar were infiltrated. After waiting 5 minutes for the anesthetic to take effect, I excised the scar contracture left upper lip after dissecting the scar from the underlying facial musculature. This made it easier to bring the left upper lip downward to make it more symmetrical with the rest of the lip. i then freed up the pincushioning scar contracture by excising the scar left lower eyelid crease in a zig zag fashion in preparation for a W-plasty to minimize the pincushioning effect. At the time of surgery, the left cheek wound that resulted from compromise of the previous left cervicofacial flap was healed. I excised the scar at the lateral canthal area to break up the scar as it started to pull the lateral canthus inferolaterally. I also excised the scar at the preauricular area. The lower cheek skin was bunched up at the skin edge. I plan on freeing up the flap just to the level of previous dissection. By re- advancing the flap a little bit, that would then mean less of a skin graft is needed. The cheek flap was easily advanced. The leading edge of the cheek flap was broken up with a zig zag to hopefully minimize further scar contracture. It also broke up the left cheek scar into smaller wounds that would be skin grafted. This can create the impression that the skin grafted area is smaller. I then proceeded to the nose and the division and inset of the forehead flap. Horizontal incision was made close to the lateral nasal sidewall. The granulation tissue on the undersurface of the pedicle was excised. The remaining flap pedicle would be used for skin grafting. The skin and subcutaneous tissue was excised off the pedicle. I then removed the subcutaneous tissue from the undersurface of the dermis thus fashioning a full thickness skin graft. The skin graft was placed in saline. I excised the base of the pedicle at the medial aspect left eyebrow. I fashioned a inverted V flap to inset into the medial aspect left eyebrow. Hemostasis was obtained with electrocautery. The inverted V wound was closed in a layered fashion with 5-0 Monocryl interrupted sutures for the deep dermis and subcutaneous tissue. The skin was approximated with 5-0 Prolene simple interrupted sutures. I moved down to the nose and the proximal edge of the forehead flap. It was thinned a little in order to inset it into the wound and maintain nasal contouring. The wound was closed with 5-0 Monocryl simple interrupted sutures and vertical mattress interrupted sutures. Moving now to the forehead wound, I used a curette and excised and debrided the wound in preparation for skin grafting. The full thickness skin graft from the pedicle of the forehead flap was then placed in the forehead wound. The skin graft was secured to the skin edge with 5-0 Chromic simple interrupted sutures. 5-0 Chromic sutures were also used for central quilting stabilization. The size of the skin graft to the forehead was 2.5 x 3 cm or 7.5 cm2. I marked out an ellipse of skin on the right neck. These markings were infiltrated with xylocaine with epinephrine. An oblique elliptical incision was made into the subcutaneous tissue. The subcutaneous tissue was removed from the undersurface of the dermis thus fashioning a full thickness skin graft. The graft was then placed in saline. Hemostasis was obtained in the donor wound with electrocautery. The donor wound was then closed in a layered fashion with 5-0 Monocryl interrupted sutures for the deep dermis and subcutaneous tissue. The skin was approximated with 5-0 Prolene simple interrupted sutures. I then proceeded with surgical preparation of the left cheek and left upper lip with excision basal cell carcinoma wound. I then placed the full thickness skin graft into the left upper lip wound. It was secured to the skin edges with 5-0 Chromic simple interrupted sutures. 5-0 Chromic sutures were also used for central quilting stabilization. The size of the skin graft to the left upper l ip was 2.5 x 4 cm or 10 cm2. I then went to the left cheek and the wounds were irrigated with saline. Hemostasis was obtained with electrocautery. I was able to advance the cheek flap 3 cm superiorly. The dimensions of the flap that I mobilized to advance more superiorly were 5 x 3 cm or 15 cm2. I sprayed Eliazar absorbable hemostat into the cheek wound to minimize seroma formation. There are three smaller areas left cheek to be skin grafted. I first performed surgical preparation of the left cheek with excision and debridement. I then addressed the left lower eyelid pincushioning deformity with this W-plasty. I placed the lower eyelid on slight stretch and secured the W-plasty to the left cheek scar which also helped to decrease the pincushioning deformity. The dimensions of the W-plasty were 6 x 0.5 cm or 3 cm2. The extra manipulation around the right lower eyelid did not put increased risk to the eyelid drooping a little bit with some scleral show and ectropion. I then secured the left cheek flap in preparation for skin grafting. The leading edge of the cheek flap was secured to the cheek scar with 5-0 Monocryl interrupted sutures for the deep dermis and subcutaneous tissue. For the three areas on the cheek to be skin grafted, I placed the FTSG onto the left cheek wounds and secured to the scar tissue with 5-0 Chromic interrupted sutures. 5-0 Chromic sutures were also used for central quilting stabilization. The skin grafted areas had sizes of 3 x 3 cm, 1 x 3 cm, and 2 x 3 cm or 18 cm2. I placed antibiotic ointment to all the skin grafts followed by Xeroform gauze and cotton balls soaked in saline and secured to the skin edge with 4-0 Nylon tie over stent suture dressing. Antibiotic ointment was applied to all the suture lines. Gauze dressing was placed on the donor wound right neck. Patient tolerated the procedure well and was sent to PACU in satisfactory condition. Patient will be sent home on antibiotics and pain medication. He will keep his head elevated during the initial postoperative period. Patient will followup in a week for a wound check and for discussion of the pathology report and for discussion of the Microbiology report. A positive culture will necessitate antibiotic therapy. I will remove the sutures in 2 weeks. Grafts/Implants Used: Eliazar. Procedure Start Time: 08:15 Procedure Stop Time: 14:29 Complications None. Admit VTE Documentation VTE Present on Admission: No VTE Mechan Device Prophylaxis: SCD's VTE Pharm Prophylaxis ordered?: No Addendum Addendum: Surgery Charges CPT - 73730 ICD-10 - C44.311, C44.319, C44.01, S01.20xA, S01.402A, S01.501A. S01.80xA, F17.200 [id number] S01.20xA, S01.402A, S01.501A, S01.80xA, C44.311, C44.319, C44.01, L90.5, F17.200 73831 C44.01, S01.501A, L90.5, F17.200 [id number] C44.319, S01.402A, S01.80xA, L90.5, F17.200 74430 C44.319, S01.402A, S01.80xA, L90.5, F17.200 78845 C44.319, S01.402A, T86.828, L90.5, F17.200 [id number] C44.311, C44.319, S01.20xA, S01.402A, L90.5, F17.200
== END 2022-09-16 17:17 | disposition home or self-care (01) ==
LOC: SDC 06:06 → AC 06:06
PROVIDERS: Referring Provider Surgery; Visit Provider Surgery
PROC: (CPT 30420; principal; 2022-09-16 07:15)
DX: T86.828 Other complications of skin graft (allograft) (autograft) (principal); Y83.2 Surgical operation with anastomosis, bypass or graft as the cause of abnormal reaction of the patient, or of later complication, without mention of misadventure at the time of the procedure; S01.20XA Unspecified open wound of nose, initial encounter; S01.401A Unspecified open wound of right cheek and temporomandibular area, initial encounter; S01.501A Unspecified open wound of lip, initial encounter; S01.80XA Unspecified open wound of other part of head, initial encounter; L90.5 Scar conditions and fibrosis of skin; J44.9 Chronic obstructive pulmonary disease, unspecified; F17.210 Nicotine dependence, cigarettes, uncomplicated; Z85.828 Personal history of other malignant neoplasm of skin
CPT/HCPCS: 15630; 15260; 15240; 15241; 14041; 15004; 14060; 00300; 87070; 87075; 87077; 87102; 87186; 87205; 87206; 88304; 88305; 94640; J7120; J2405

== ENCOUNTER 2022-09-17 19:50 | Emergency (ER) | payer OTHER, SELFPAY ==
[2022-09-17 19:51] VITALS: BP 145/106; PULSE 113; RESP 18; TEMP 37.5; O2SAT 99; BMI 28.3
--- NOTE | 2022-09-17 21:07 | ED.VIS.BACK ---
HPI History of Present Illness Chief Complaint: Back Informant: patient Onset/Context/Timing Onset: Today and Yesterday Context: Gradual Onset Injury: direct trauma Timing: Continuous Quality: Aching Current Severity: Mild Maximum Severity: Mild Worsened by: improves with Nothing Relieved by: Nothing Associated Symptoms Associated Symptoms: Negative for Numbness, Tingling, Radiation to Right Leg, Radiation to Left Leg, Fever, Abdominal Pain, Dysuria, Unable to Ambulate, Unable to Transfer, Urinary Retention, Urinary Incontinence, Constipation, Fecal Incontinence or - Narrative Narrative: 52-year-old male history of COPD and recent reconstructive left facial surgery secondary to skin cancer. Patient was in the hospital yesterday had significant left-sided facial surgery to reconstruct his nose and surgery due to facial skin cancer. 71 woke up there was a blue clamp that usually is on one of the IV bags and he said he been laying on it for several hours he has lower back and buttock pain. Denies any fall or trauma. No weakness or numbness to his legs. No significant back history. Or prior back surgery. Prior similar symptoms: No Recent Illness/Hospitalization: No [facility] Medical History Basal cell carcinoma (BCC) of left medial cheek Basal cell carcinoma (BCC) of left side of nose Basal cell carcinoma (BCC) of skin of left upper lip Basal cell carcinoma of skin of other parts of face Bone fracture Cancer Cardiology follow-up encounter COPD (chronic obstructive pulmonary disease) History of echocardiogram Injury of back Open wound of forehead Open wound of left cheek Open wound of lip Open wound of nasal cavity Other acute postprocedural pain Skin cancer Skin flap necrosis Smoker Wears glasses Home Medications umeclidinium 62.5 mcg-vilanterol 25 mcg/actuation powdr for inhalation (Anoro Ellipta) 1 inh inhalation DAILY #60 ea 07/13/22 [Rx Last Taken Unknown] Nebulizer machine #1 ea 07/15/22 [Rx Last Taken Unknown] Supplies for nebulizer machine #1 ea 07/15/22 [Rx Last Taken Unknown] ipratropium 0.5 mg-albuterol 3 mg (2.5 mg base)/3 mL nebulization soln 3 ml inhalation Q6H PRN shortness of breath or wheezing #180 mL 07/15/22 [Rx Last Taken Unknown] L.acidophil,salivari-Bifido bifidum-Strep thermoph 175 mg capsule (Acidophilus Probiotic Blend) 1 cap PO DAILY #30 caps 09/16/22 [Rx Last Taken Unknown] levofloxacin 750 mg tablet 750 mg PO DAILY #10 tabs 09/16/22 [Rx Last Taken Unknown] oxycodone-acetaminophen 5 mg-325 mg tablet (Percocet) 1 tab PO Q6H PRN pain (scale score 7-10) 7 days #28 tabs 09/16/22 [Rx Last Taken Unknown] Allergy/AdvReac Type Severity Reaction Status Date / Time No Known Allergies Allergy Verified 09/17/22 19:52 Family History Other Diabetes Surgical History History of basal cell carcinoma excision Hx of eye surgery Hx of surgical procedure Social History Smoking Status: Current some day smoker tobacco type: cigarettes Tobacco: How many years used: 35 alcohol intake: never substance use type: does not use caffeine: Yes Type: coffee Number of servings: 8 ROS ROS ED ROS Narrative Denies recent illness. Review of Systems ROS Unobtainable: Denies due to encephalopathy Constitutional Constitutional ED: Denies chills or fever(s) Eyes Eyes: Denies blurry vision ENT ENT ED: Denies ear pain Cardiovascular Cardiovascular: Denies chest pain Respiratory/Chest Respiratory/Chest: Denies dyspnea Gastrointestinal Gastrointestinal: Denies abdominal pain Musculoskeletal Musculoskeletal: Reports back pain; Denies arthralgias, myalgias or neck pain Integumentary Denies abscess Neurologic Neurologic: Denies headache(s) Psychiatric Psychiatric: Denies anxiety Endocrine Endocrinology: Denies cold intolerance Hematologic/Lymphatic Hematologic/Lymphatic: Denies easy bleeding Allergic/Immunologic Allergic/Immunologic ED: Denies mouth swelling or tongue swelling EXAM Physical Exam Narrative Exam Narrative: 52-year-old gentleman vital signs are stable afebrile. He does not look septic or toxic. H EENT exam he had significant substantial surgery in the left side of his face with many sutures in place from recent skin cancer resection and reconstruction of his left side of his nose. There is swelling around his left eye and the left eye is closed due to the swelling. Surgery was just done yesterday. There is no obvious signs of infection. He can open his mouth. Is moist with membranes. Poor dentition. Neck nontender. He has a dressing on the right side of his neck. Lungs are clear. Heart regular rhythm. Chest wall nontender. Abdomen soft nontender. Moving all 4 extremities. He has normal motor strength and sensation of both upper and lower extremities. He was standing and ambulating in room when I walked in. The cervical, thoracic and lumbar spine are nontender. His very low back and upper buttocks there is some mild soft tissue swelling consistent with a contusion. There is no bruising. There is no signs of infection. Appears to be a soft tissue injury from when he was reportedly lying on his clamp. he has normal motor strength and sensation to the lower extremities. Const Vital Signs: 09/17/22 19:51 Temperature 99.5 F H Temperature Source Temporal Pulse Rate 113 H Respiratory Rate 18 Blood Pressure 145/106 H Blood Pressure Mean 119 Pulse Ox 99 Positive well nourished and well developed; Negative for cachectic, contractures or unkempt General Appearance ED: well developed and NAD; Negative for unkempt, cachectic or contractures Nutritional Appearance: Negative for cachectic HEENT Reports moist mucous membranes HEENT Narrative: Recent substantial left-sided facial surgery. Left eye swollen closed. tenderness Eyes EOMs intact bilaterally; Negative for PERRL Neck no lymphadenopathy, supple and no JVD Neck Narrative: Wound right leg with dressing. General: Negative for tenderness Thyroid: Negative for other Chest Wall Chest: Negative for other Resp normal respiratory effort and clear to auscultation bilaterally Effort and Inspection: Negative for pain with movement Auscultation: Negative for rales, rhonchi or wheezes Cardio regular rate, regular rhythm, S1 normal heart sound, S2 normal heart sound and no murmurs Palpation: Negative for palpable S3 Rate: Negative for bradycardia or tachycardic Rhythm: Negative for abnormal rhythm GI normal to inspection, nondistended, normoactive bowel sounds, soft to palpation, non-tender, non-distended and no masses Inspection: Negative for abdominal distention Palpation: Negative for tender or guarding Back/Spine no thoracic nor lumbar tenderness; Negative for normal to inspection Back/Spine Narrative: Contusion with soft tissue swelling to his buttocks low back. No signs of infection. No bruising. No bony tenderness. No foreign body. Cervical Spine: Negative for cervical spine tenderness Thoracic Spine / Upper Back: paraspinal muscle tenderness Lumbar Spine / Lower Back: straight leg raise negative bilaterally; Negative for ROM limited Extremity normal to inspection and no clubbing, cyanosis or edema General Extremety ED: Negative for edema or tenderness General Extremity: Negative for edema Neuro oriented x3 and no sensory deficits noted Sensorium / Orientation: alert; Negative for confused, lethargic or stuporous Motor Exam: strength 5/5 throughout Psych mental status grossly normal Appearance: Negative for unkempt Attitude: No agitated Mood & Affect: Negative for depressed, sad or tearful Skin no rashes or lesions noted and no wounds Skin Narrative: Healing surgical wounds on his face and scalp. Lesions: No lesion noted Rashes: No rashes noted Trauma: Negative for abrasion MDM MDM MDM Narrative Medical decision making narrative: 52-year-old male he had facial surgery yesterday. Reportedly had been lying on an IV clamp during the procedure and has a contusion to his lower back. Ice to the area. Tylenol Motrin for pain. This should progressively improve. History & Record Review Discussion w/independent historian: Patient Discharge Plan Triage Chief Complaint: Back ED Provider: Julian Qureshi Dx/Rx/DC Orders Clinical Impression: Contusion of buttock Instructions: ED Soft Tissue Contusion Prescriptions: No Action Anoro Ellipta 62.5-25 mcg/actuation blister with device 1 inh inhalation DAILY Qty: 60 8RF levofloxacin 750 mg tablet 750 mg PO DAILY Qty: 10 0RF L.acidoph,saliva-B.bif-S.therm [Acidophilus Probiotic Blend] 175 mg capsule 1 cap PO DAILY Qty: 30 0RF oxycodone-acetaminophen [Percocet] 5-325 mg tablet 1 tab PO Q6H PRN (Reason: pain (scale score 7-10)) 7 Days Qty: 28 0RF Rx Instructions: 28 tabs (twenty-eight) ipratropium-albuterol 0.5 mg-3 mg(2.5 mg base)/3 mL solution for nebulization 3 ml inhalation Q6H PRN (Reason: shortness of breath or wheezing) Qty: 180 2RF (DME) Nebulizer machine See Rx Instructions .ROUTE .MEDSUPPLY Qty: 1 0RF Rx Instructions: As directed (DME) Supplies for nebulizer machine See Rx Instructions .ROUTE .MEDSUPPLY Qty: 1 0RF Rx Instructions: Tubing, plastic nebulizer cups, renewable every 30-90 days per insurance. Use every 4-6 hours with liquid respiratory medication as directed. Primary Care Provider: Care Physician,No Primary Referrals: Delfino Almodovar MD [Med Staff - Active Staff] - 1 Week if not improving Sreedhar Arzola MD [Non-Staff] - Care Physician,No Primary [Primary Care Provider] - Activity Restrictions/Additional Instructions: Ice to the area of your buttocks that has the contusion. Motrin for pain and inflammation and Tylenol for pain. This should progressively improve if not follow-up to have it reevaluated on return. Disposition Disposition: Home, Self Care
== END 2022-09-17 21:21 | disposition home or self-care (01) ==
PROVIDERS: Emergency Provider Emergency Medicine; Visit Provider Emergency Medicine
DX: S30.0XXA Contusion of lower back and pelvis, initial encounter (principal); J44.9 Chronic obstructive pulmonary disease, unspecified; F17.210 Nicotine dependence, cigarettes, uncomplicated; Z98.890 Other specified postprocedural states; Z85.828 Personal history of other malignant neoplasm of skin; X58.XXXA Exposure to other specified factors, initial encounter
CPT/HCPCS: 99282